=== PATIENT | female | born 1955 | race Caucasian/White ===

== ENCOUNTER → 2020-02-26 10:29 | Outpatient (CLI) | payer MEDICARE, OTHER, SELFPAY ==
--- NOTE | 2020-02-26 10:55 | EKG12_ITS ---
Test Reason : PRE-OP Blood Pressure : / mmHG Vent. Rate : 059 BPM Atrial Rate : 059 BPM P-R Int : 166 ms QRS Dur : 082 ms QT Int : 410 ms P-R-T Axes : 056 089 048 degrees QTc Int : 405 ms Sinus bradycardia Otherwise normal ECG Confirmed by ROHAN WILSON, CELSO ([id number]), subeditor JOE VALENZUELA ([id number]) on 02/28/2020 3:30:48 PM Referred By: Sima Evans Confirmed By:CELSO MADRIGAL MD
[2020-02-26 10:59] LABS: Absolute Lymphocyte Count 1.03 X10^3/uL (0.83-4.51); Absolute Neutrophil Count 5.2 X10^3/uL (2.0-7.7); Basophil# 0.05 X10^3/uL; Basophil% 0.7 % (0-1); Eosinophil# 0.02 X10^3/uL; Eosinophils% 0.3 % (0-5); Hematocrit 43.1 % (37-47); Hemoglobin 14.5 g/dL (12.0-15.0); Lymphocyte # 1.03 X10^3/ul (4.0); Lymphocyte % 15.1 % (19-41); Mean Corp Hgb Conc 33.6 g/dL (32-36); Mean Corpuscular Hgb 30.7 pg (27.0-32.0); Mean Corpuscular Volume 91.1 fL (81-99); Mean Platelet Vol. 9.3 fl (6.2-12.0); Monocyte% 7.3 % (0-10); NRBC Flagged by Analyzer 0 % (0-5); Neutrophil % 76.5 % (47-70); Platelet Count 284 K/mm3 (150-450); RBC Distribution Width CV 12.1 % (11.6-14.6); RBC Distribution Width SD 39.8 fl (35.1-43.9); Red Blood Count 4.73 M/mm3 (4.2-5.4); White Blood Count 6.8 K/mm3 (4.4-11.0)
[2020-02-26 11:17] LABS: Anion Gap 3 (5-15); BUN 12 mg/dL (7-18); BUN/Creat Ratio 15.3 RATIO (10-20); Calcium,Total 9.2 mg/dL (8.5-10.1); Chloride 101 mmol/L (98-107); Creatinine, Serum 0.79 mg/dL (0.55-1.02); EST Glomerular Filtration Rate 78 mL/min (>60); Est Glom Filt Rate - Afr Amer 94 mL/min (>60); Glucose 98 mg/dL (74-106); Potassium 4.1 mmol/L (3.5-5.1); Sodium Level 135 mmol/L (136-145)
== END ==
PROVIDERS: Referring Provider Registered Nurse; Visit Provider Registered Nurse
DX: Z01.818 Encounter for other preprocedural examination (principal); Z01.810 Encounter for preprocedural cardiovascular examination
CPT/HCPCS: 36415; 80048; 85025; 93005

== ENCOUNTER → 2020-02-28 10:29 | Outpatient (CLI) | payer MEDICARE, OTHER, SELFPAY | PROVIDERS: Referring Provider Registered Nurse; Visit Provider Registered Nurse | DX: Z11.59 Encounter for screening for other viral diseases (principal) | CPT/HCPCS: 87635; 94799; U0003 ==

== ENCOUNTER → 2020-06-09 14:31 | Outpatient (CLI) | payer MEDICARE, OTHER, SELFPAY ==
[2020-05-15 12:59] VITALS: BMI 27.3
--- NOTE | 2020-06-09 14:49 | CT_ITS ---
CT of the left lower extremity without contrast INDICATION: Preop knee arthroplasty, November protocol. TECHNIQUE: Multiple thin section axial CT images of the left hip, left knee, left ankle were obtained and filmed in bone windows. Furthermore, multiple sagittal and coronal reconstructions were performed. Dose limiting techniques were utilized. FINDINGS: No abnormal soft tissue mass, lymphadenopathy, fluid collection. Moderate-sized joint effusion of the knee joint. Examination the hip joint is normal. Moderate arthrosis of the knee joint with osteochondral lesions of the lateral femoral condyle and lateral tibial plateau. Examination the ankle joint is normal. No acute fracture or dislocation. No lytic or blastic lesions. IMPRESSION: Moderate knee arthrosis with joint effusion. Electronically Signed: Maximino Eubanks MD at 15:38 EST Tel , Service support , CT/Extremity Lower without Contra
== END ==
PROVIDERS: PCP Internal Medicine; Referring Provider Specialist; Visit Provider Specialist
DX: E66.3 Overweight (principal)
CPT/HCPCS: 73700

== ENCOUNTER → 2020-06-12 10:24 | Outpatient (CLI) | payer MEDICARE, OTHER, SELFPAY ==
[2020-05-15 12:59] VITALS: BMI 27.3
[2020-06-12 11:13] LABS: Probe Check PASS; Specimen Processing Control PASS
== END ==
PROVIDERS: PCP Internal Medicine; Visit Provider Internal Medicine
DX: U07.1 COVID-19 (principal)
CPT/HCPCS: 87635; C9803; U0002

== ENCOUNTER 2020-06-25 05:56 | Day surgery (SDC) | payer MEDICARE, OTHER, SELFPAY ==
[2020-05-15 12:59] VITALS: BMI 27.3
[2020-06-09 15:01] LABS: Absolute Lymphocyte Count 0.49 X10^3/uL (0.83-4.51); Absolute Neutrophil Count 6.9 X10^3/uL (2.0-7.7); Basophil# 0.04 X10^3/uL; Basophil% 0.5 % (0-1); Eosinophil# 0.02 X10^3/uL; Eosinophils% 0.2 % (0-5); Hematocrit 42.1 % (37-47); Hemoglobin 13.6 g/dL (12.0-15.0); Lymphocyte # 0.49 X10^3/ul (4.0); Mean Corp Hgb Conc 32.3 g/dL (32-36); Mean Corpuscular Hgb 29.3 pg (27.0-32.0); Mean Corpuscular Volume 90.7 fL (81-99); Mean Platelet Vol. 9.3 fl (6.2-12.0); Monocyte% 8.5 % (0-10); NRBC Flagged by Analyzer 0 % (0-5); Neutrophil # 6.94 X10^3/uL (2.7-7.7); Neutrophil % 84.7 % (47-70); POSITIVE DIFFERENTIAL YES; Platelet Count 262 K/mm3 (150-450); RBC Distribution Width CV 12.4 % (11.6-14.6); RBC Distribution Width SD 40.9 fl (35.1-43.9); Red Blood Count 4.64 M/mm3 (4.2-5.4); White Blood Count 8.2 K/mm3 (4.4-11.0)
[2020-06-09 15:04] LABS: Differential Indicated SCAN CRITERIA MET
--- NOTE | 2020-06-09 15:09 | HP.PCM_ITS ---
History and Physical History and Physical Patient Name: Karen Hooker : 1955 From: ATILIO CANAS NP DATE OF SURGERY: 06/25/2020 SCHEDULED PROCEDURE: Left total knee arthroplasty HISTORY OF PRESENT ILLNESS: Preoperative history and physical exam was performed on June 09, 2020. This is a 64-year-old female whose been having ongoing left knee pain for several years that has significantly increased over the last year. The patient rates her pain is 3 on a scale of 10 on average and 8 on a scale of 10 with activity. The patient describes the pain as intermittent, aching and sore. The pain is made worse with stairs, sitting for prolonged periods of time, standing and walking. The pain is located over the lateral joint line. She denies numbness and tingling. The pain does wake her at night. The patient reports inability to perform activities of daily living without pain and leisure activities such as golfing and walking. Previous conservative measures attempted consist of rest, ice, heat and elevation with no relief. The patient has participated in formal physical therapy and home exercises with no relief. The patient underwent a left knee arthroscopy in February [address] Jc Cleaning. She states she did experience some relief initially but the pain has increased. She has also tried a knee brace. The patient denies any pertinent medical history. Surgical clearance will be obtained from her primary care provider Dr. Gerardo. She denies chest pain, fevers, chills, shortness breath, difficulty breathing or recent infections. After failing conservative measures and discussing treatment options with Dr. Ralph Meraz the patient does wish to proceed with a left total knee arthroplasty. REVIEW OF SYSTEMS: ROS: Const: Denies change in appetite, fever and weight change. CV: Denies chest pain, heart murmur and irregular heartbeat. Resp: Denies cough, pneumonia, shortness of breath, tuberculosis and wheezing. GI: Denies constipation, diarrhea, heartburn, nausea, rectal itching, bloody stools and vomiting. : Denies incontinence. Musculo: Denies leg swelling, pain, trouble walking and weakness. Skin: Denies Raynaud's, history of shingles and tattoo. Neuro: Denies ambulatory dysfunction, dizziness, numbness/tingling and tremor. Psych: Reports anxiety and stress, but denies insomnia. Grzegorz/Lymph: Denies anemia, bleeding/bruising tendency and past transfusion. Reviewed, no changes. PAST MEDICAL HISTORY: Advance Care Plan: Other Directive, LIVING WILL PMH: Medical Problems: No Current Problems Accidents: Fracture - RT FOREARM Surgical Hx: Tubal Ligation - (1982) @[facility] Tonsillectomy - (1961) Knee Arthroscopy LT - (03/06/2020) MSK @ [facility] Anesthesia Complications: None Assistive Devices: None Reviewed, no changes. 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 Personal Habits: Cigarette Use: Never Smoked Cigarettes.Smokeless Tobacco: Never Used Smokeless Tobacco.E-Cigarette Use: Never used.Alcohol: Weekly use.Drug Use: Denies Use.Enjoy Exercising: Never Exercises. Reviewed and updated. VITALS: Ht: 69 Wt: 181lb Wt k.102 BMI: 26.7 BP: 128/78 Pulse: 81 Resp: 16 T: 97.5 T: 36.4C Pain Level: 5 ALLERGIES: No Known Drug Allergy No Known Substance Allergies MEDICATIONS: Oxycodone HCL 5 mg 1-2 tab by mouth every 4 hours, Meloxicam 7.5 mg 1 by mouth twice a day, Promethazine HCL 12.5 mg 1-2 tablets by mouth every 6 hours, Famotidine 20 mg 1 by mouth every day, Transderm Scop (1.5 MG) 1 MG/3Days 1 patch behind ear every 3 days, Reliv Now Supplement 2 t daily, Vitamin C 250 mg 1po qday, Vitamin D 1 po qd PRE-OP EXAM: General appearance:NORMAL Other: Eyes: Conjunctivae and lids: NORMAL Pupils: ERR Ears, Nose, Mouth, and Throat: NORMAL Other: Inspection of lips, teeth and gums: NORMAL Other: Respiratory: Assessment of respiratory effort: NORMAL Other: Auscultation of lungs: clear to auscultation no wheezes, rhonchi or rales. Cardiovascular: Auscultation of heart: regular rate and rhythm, no murmurs, gallops or rubs. Gastrointestinal: Exam of abdomen: soft, nontender, nondistended bowel sounds present. Neurological: see below Psychiatric: Orientation to time, place and person: NORMAL Other: Mood and affect: NORMAL Other: PHYSICAL EXAMINATION: The patient ambulates with a mild antalgic gait. Varus alignment. Well healed arthroscopic portal incisions. Mild tenderness with palpation along the medial joint line. Moderate tenderness to palpation along the lateral joint line. Firm endpoint with varus and valgus stress testing. Range of motion: Flexion to 120. Pain with deep knee flexion. Sensation intact to saphenous, sural, deep and superficial peroneal and tibial nerve distributions. IMAGING STUDIES: 4 views of left knee including sunrise and lateral and bilateral weight-bearing AP and tunnel views obtained on May 26, 2020 reviewed reveals varus alignment and lateral joint space narrowing, subchondral sclerosis and osteophyte formation consistent with severe tricompartmental stage IV osteoa rthritis with bony erosion of the lateral compartment. IMPRESSION: 1. Posttraumatic osteoarthritis, left knee 2. Varus deformity, left knee PLAN: Dr. Ralph Meraz did discuss and review with the patient all treatment options including surgical versus nonsurgical. The patient does wish to proceed with the above-stated procedure. Potential risk, benefits and complications of the procedure were discussed in detail including but not limited to , infection, nerve and blood vessel damage, persistent pain, numbness, tingling, paresthesia, blood clot, pulmonary embolism and requirement for possible further surgery. The patient expressed full understanding and has no further questions for the doctor. The patient does agree to proceed with the above-stated procedure and has signed the surgery consent form. The patient was given prescriptions for the following medications at her preoperative visit: Famotidine, meloxicam, oxycodone, promethazine, and a scopolamine patch. 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 The patient was instructed to bring a walker with her to the hospital the day of her surgery. Discussed with the patient the risks associated with the COVID-19 virus including the risk of exposure while at the hospital. The patient was reassured local hospitals have low infection rates and taken all necessary precautions to limit patient exposure to COVID-19. Limiting the patient's time in the hospital may decrease their exposure to COVID-19. The patient was notified that we will need to comply with any screening or testing the hospital wishes to perform and that surgery may be delayed for any positive test results. This dictation was created using voice recognition software. Phonetic and/or grammatical errors may exist. ___ I have re-examined the patient. There are no clinical changes since date of exam. ___ See progress notes for changes. ___ Dictated on admission Date: Time: Signature:
[2020-06-09 15:35] LABS: Anion Gap 5 (5-15); BUN 18 mg/dL (7-18); BUN/Creat Ratio 12.9 RATIO (10-20); Calcium,Total 9.6 mg/dL (8.5-10.1); Chloride 101 mmol/L (98-107); EST Glomerular Filtration Rate 40 mL/min (>60); Est Glom Filt Rate - Afr Amer 49 mL/min (>60); Glucose 102 mg/dL (74-106); Potassium 4.4 mmol/L (3.5-5.1); Sodium Level 136 mmol/L (136-145)
[2020-06-09 16:31] LABS: Platelet Estimate ADEQUATE (ADEQ); Red Cell Morphology NORM C+C NORMAL (NORM C&C)
[2020-06-21 10:32] LABS: Absolute Lymphocyte Count 1.42 X10^3/uL (0.83-4.51); Absolute Neutrophil Count 3.5 X10^3/uL (2.0-7.7); Basophil# 0.04 X10^3/uL; Basophil% 0.7 % (0-1); Eosinophil# 0.04 X10^3/uL; Eosinophils% 0.7 % (0-5); Hematocrit 41.1 % (37-47); Hemoglobin 13.9 g/dL (12.0-15.0); Lymphocyte # 1.42 X10^3/ul (4.0); Lymphocyte % 25.9 % (19-41); Mean Corp Hgb Conc 33.8 g/dL (32-36); Mean Corpuscular Volume 88.6 fL (81-99); Mean Platelet Vol. 9.5 fl (6.2-12.0); Monocyte# 0.48 X10^3/uL; Monocyte% 8.8 % (0-10); NRBC Flagged by Analyzer 0 % (0-5); Neutrophil # 3.48 X10^3/uL (2.7-7.7); Neutrophil % 63.5 % (47-70); Platelet Count 347 K/mm3 (150-450); RBC Distribution Width CV 11.9 % (11.6-14.6); Red Blood Count 4.64 M/mm3 (4.2-5.4); White Blood Count 5.5 K/mm3 (4.4-11.0)
[2020-06-21 10:42] LABS: Anion Gap 5 (5-15); BUN 9 mg/dL (7-18); BUN/Creat Ratio 11.4 RATIO (10-20); Calcium,Total 9.2 mg/dL (8.5-10.1); Chloride 102 mmol/L (98-107); Creatinine, Serum 0.79 mg/dL (0.55-1.02); EST Glomerular Filtration Rate 78 mL/min (>60); Est Glom Filt Rate - Afr Amer 94 mL/min (>60); Glucose 101 mg/dL (74-106); Sodium Level 135 mmol/L (136-145)
[2020-06-25] VITALS (10 sets, daily range): BP systolic 89–125; BP diastolic 46–64; PULSE 70–94; RESP 16–18; TEMP 36.7–37.3; O2SAT 96–100; BMI 26.0
[2020-06-25] MEDS: Acetaminophen 500 MG Tablet 1000 MG PO (06:32)
[2020-06-25] MEDS: Gabapentin 600 MG Tablet PO (06:32)
[2020-06-25] MEDS: Lactated Ringers 1,000 ML 999 ML IV ×2 (06:43→10:04)
[2020-06-25 07:15] LABS: Bedside Glucose 105 mg/dL (70-110)
--- NOTE | 2020-06-25 07:16 | RAD_ITS ---
STUDY: X-RAY - LEFT KNEE REASON FOR EXAM: Female, 64 years old. TKA. TECHNIQUE: 2 view(s) of the knee. COMPARISON: None. FINDINGS: Normal visualized distal femur. Normal visualized proximal tibia and fibula. Normal proximal tibiofibular articulation. The patient is status post total knee replacement. There is good alignment. Postoperative soft tissue changes. RAD/Knee 1 or 2 Views IMPRESSION: Status post total knee replacement. There is good alignment. Postoperative soft tissue changes. Electronically Signed: Bang Mayfield, at 13:05 EST , Service support ,
[2020-06-25] MEDS: Cefazolin 2 GM in 0.9% Normal Saline 100 ML IV (07:42)
[2020-06-25] MEDS: dexAMETHasone 10 MG/ML Vial IV (08:15)
[2020-06-25] MEDS: Lactated Ringers 1,000 ML 75 ML IV (08:15)
--- NOTE | 2020-06-25 09:05 | OP.PCM_ITS ---
Report of Operation Date of Procedure: 06/25/20 Pre-Operative Diagnosis: Left knee primary osteoarthritis Post-Operative Diagnosis: Left knee primary osteoarthritis Surgery/Procedure Performed:: Minimally invasive left robotic assisted total knee replacement Description of Surgical Findings:: Stable knee with good patella tracking silver chaser: Nicky Anne Type of Anesthesia:: Spinal Anesthesiologist: Christos Osuna Special Medications: 2 g Ancef, 1 g TXA at incision, 1 g TXA closure, 10 mg Decadron, joint cocktail (5 mg Duramorph, 30 mL of 0.5% Ropivicaine, 1000 units of epinephrine, 30 mg of Toradol) Specimen's removed: Bony cuts Estimated Blood Loss (mL): 25 Fluids Replaced: 1500 mL crystalloid Description of Procedure: Implants used: 1. Princeton size 5 triathlon cruciate retaining distal femoral press-fit component 2. [place] size 5 press-fit tritanium tibial baseplate 3. Hailee X3 9 mm CS polyethylene 4. Hailee X3 35 mm asymmetric patella Brief history operative indications: 64-year-old F with history of left knee osteoarthritis with radiographic findings with loss of joint space, osteophyte formation and subchondral sclerosis. Failed conservative measures as mentioned in the H&P. Discussion of total knee arthroplasty as well as risk and benefits were discussed the patient including but not limited to blood loss, DVTs, PEs, neurovascular damage, general risk of anesthesia including loss of life, and stiffness or instability were discussed with patient. Patient demonstrated understanding and was able to sign informed consent. Procedure: On the date of procedure patient's left lower extremity was marked in the preoperative area. The patient was then taken back to the operating room where the patient was placed on the table in the supine position. All bony prominences were identified a well-padded. Anesthesia assumed control of the C-spine and airway and remained controlled throughout the remainder of the procedure. A tourniquet was placed on the left upper thigh and the leg was prepped in a sterile fashion. The surgeon then scrubbed at this time .Upon reentering the room left lower extremity was draped in a standard orthopedic fashion. A timeout was then called and everyone agreed upon the side, the site, the procedure to be performed, patient's identity and antibiotics given. Esmarch bandage was used to exsanguinate the extremity and the tourniquet was placed up to 250 mmHg with the knee in flexion. A midline skin incision was made and sharp dissection was taken down through skin subcutaneous tissue and fat. The standard medial parapatellar incision was made and the patella was subluxed laterally. An Appropriate deep MCL release was done and the fat pad was resected. Our attention was then directed to the patella. The patella was everted and a flat resection was made. The knee was then flexed up in 2 femoral pins were placed inside the incision and 2 tibial pins were placed outside the incision in the medial tibia bicortically. Once this was completed the 2 checkpoints in the femur and tibia were placed. Knee was then flexed up and the bony landmarks were registered. Once this was completed knee was taken through range of motion and manually stressed allowing us to a plan for an appropriate tibial cut. The robotic arm was brought into the field sterilely and checkpoint and saw were registered. Based on the patient's deformity the tibial cut was made in 1 degree of varus. At this time the tensioner was then placed in the joint and ligament tension was checked at 90 degrees and full extension. Based on the patient's ligamentous tension appropriate adjustments were made to the operative plan and ligament releases were done. Once we were happy with our operative plan with balanced flexion and extension gaps our attention was directed to the femur. The robot was brought into the field sterilely and registered. Posterior condylar cuts, anterior chamfer cuts and anterior cuts were appropriately made for a size 5 femur. When these were completed the saws were switched out in the distal femoral and posterior chamfer cuts were made. Protecting the soft tissue throughout this time. A size 5 tibial base plate was selected. the knee was flexed to 90 degrees and the soft tissues and posterior osteophytes were removed from the joint. 40 cc of the periarticular injection was injected into the posterior medial corner of the joint. The appropriate trials were then placed on the femur and tibia. A trial polyethylene was trialed to ensure proper balancing and stability of the knee. The appropriate tibial internal rotation was then marked with a bovie. Our attention was then directed to the patella. The lug holes were drilled and the patella trial was placed. Patellar tracking was checked and deemed appropriate. Once we were happy lug holes were drilled for the femur and trial components were removed. the tibia was subluxed and pinned into place and the keel was punched and drilled appropriately. Final components were verified and opened, and cement was mixed in a vacuum. Creator Up Simplex cement was used. The wound was copiously irrigated with normal saline. When the cement was ready the components were impacted into place starting with the tibia, femur and finally cementing the patella. The trial poly component was placed and the knee was placed in full extension. All excess cement was removed in the process. Once the cement had cured the tracking, alignment and balance were verified and a size 9 mm CS polyethylene component was placed. Once the final components were placed an Irrisept lavage was performed and the wound was copiously irrigated with normal saline solution and the periarticular injection was given. The wound was closed in a layer verduzco fashion using #1 vicryl interrupted sutures for the arthrotomy, 2-0 interrupted Vicryl suture for the subcuticular layer and john for final skin closure. A sterile compressive dressing was then placed. The patient was then awakened from anesthesia, transferred to the rroaring branch and transferred to the PACU for recovery. Post op plan DVT ppx: ASA 81mg BID, thigh high compression stockings Follow up: in office in 2 weeks for wound check PT: to start POD #0 at hospital, outpatient PT should be arranged. - Complications No intraoperative complications - Admit VTE Documentation VTE Present on Admission: No VTE Mechan Device Prophylaxis: SCD's, Thigh High LENORA Hose VTE Pharm Prophylaxis ordered?: Yes
[2020-06-25] MEDS: Cefazolin 1 GM/50 ML BAG IV (13:39)
== END 2020-06-25 14:13 | disposition home or self-care (01) ==
LOC: SDC 05:57 → AC 05:58
PROVIDERS: Anesthesiology; PCP Internal Medicine; Referring Provider Specialist; Visit Provider Specialist
PROC: 0SRD0JZ Replacement of Left Knee Joint with Synthetic Substitute, Open Approach (ICD-10-PCS; CPT 27447; principal; 2020-06-25 07:30)
DX: M17.32 Unilateral post-traumatic osteoarthritis, left knee (principal); M21.162 Varus deformity, not elsewhere classified, left knee; Z20.828 Contact with and (suspected) exposure to other viral communicable diseases
CPT/HCPCS: 01402; 27447; S2900; 36415; 73560; 80048; 82040; 82962; 83735; 85025; 87081; 97162; C1776; J7120

== ENCOUNTER → 2021-01-12 11:41 | Outpatient (CLI) | payer MEDICARE, OTHER, SELFPAY ==
[2020-06-25 06:53] VITALS: BMI 26.0
[2021-01-12 12:54] LABS: Absolute Lymphocyte Count 0.99 X10^3/uL (0.83-4.51); Absolute Neutrophil Count 4.6 X10^3/uL (2.0-7.7); Basophil# 0.04 X10^3/uL; Basophil% 0.6 % (0-1); Eosinophil# 0.02 X10^3/uL; Eosinophils% 0.3 % (0-5); Hemoglobin 13.8 g/dL (12.0-15.0); Lymphocyte # 0.99 X10^3/ul (0.83-4.51); Lymphocyte % 15.9 % (19-41); Mean Corp Hgb Conc 32.9 g/dL (32-36); Mean Corpuscular Hgb 30.2 pg (27.0-32.0); Mean Corpuscular Volume 91.9 fL (81-99); Mean Platelet Vol. 9.7 fl (6.2-12.0); Monocyte# 0.59 X10^3/uL; Monocyte% 9.5 % (0-10); NRBC Flagged by Analyzer 0 % (0-5); Neutrophil # 4.56 X10^3/uL (2.7-7.7); Neutrophil % 73.2 % (47-70); Platelet Count 308 K/mm3 (150-450); RBC Distribution Width CV 12.3 % (11.6-14.6); RBC Distribution Width SD 41.3 fl (35.1-43.9); Red Blood Count 4.57 M/mm3 (4.2-5.4); White Blood Count 6.2 K/mm3 (4.4-11.0)
[2021-01-12 13:15] LABS: Erythrocyte Sedimentation Rate 5 mm/hr (0-30)
[2021-01-12 13:21] LABS: CRP < 2.90 mg/L (0.0-3.0)
== END ==
PROVIDERS: PCP Internal Medicine; Referring Provider Specialist; Visit Provider Specialist
DX: Z96.652 Presence of left artificial knee joint (principal)
CPT/HCPCS: 36415; 85025; 85652; 86140

== ENCOUNTER 2021-07-30 11:14 | Outpatient (CLI) | payer MEDICARE, OTHER, SELFPAY ==
[2021-07-30 12:07] LABS: Absolute Lymphocyte Count 1.02 X10^3/uL (0.83-4.51); Absolute Neutrophil Count 5.9 X10^3/uL (2.0-7.7); Basophil# 0.04 X10^3/uL; Basophil% 0.5 % (0-1); Eosinophil# 0.04 X10^3/uL; Eosinophils% 0.5 % (0-5); Hematocrit 41.6 % (37-47); Hemoglobin 14.1 g/dL (12.0-15.0); Lymphocyte # 1.02 X10^3/ul (0.83-4.51); Lymphocyte % 13.4 % (19-41); Mean Corp Hgb Conc 33.9 g/dL (32-36); Mean Corpuscular Hgb 30.5 pg (27.0-32.0); Mean Platelet Vol. 9.4 fl (6.2-12.0); Monocyte# 0.54 X10^3/uL; Monocyte% 7.1 % (0-10); NRBC Flagged by Analyzer 0 % (0-5); Neutrophil % 77.8 % (47-70); Platelet Count 285 K/mm3 (150-450); RBC Distribution Width CV 12.2 % (11.6-14.6); RBC Distribution Width SD 39.8 fl (35.1-43.9); Red Blood Count 4.62 M/mm3 (4.2-5.4); White Blood Count 7.6 K/mm3 (4.4-11.0)
[2021-07-30 12:28] LABS: Erythrocyte Sedimentation Rate 3 mm/hr (0-30)
[2021-07-30 12:40] LABS: CRP < 2.90 mg/L (0.0-3.0)
== END 2021-07-30 23:59 | disposition short-term general hospital (02) ==
PROVIDERS: PCP Internal Medicine; Visit Provider Specialist
DX: Z96.652 Presence of left artificial knee joint (principal)
CPT/HCPCS: 36415; 85025; 85652; 86140

== ENCOUNTER → 2022-01-01 | Outpatient (CLI) | payer MEDICARE, OTHER, SELFPAY ==
--- NOTE | 2022-01-01 10:07 | RAD_ITS ---
EXAM: XR LEFT ANKLE, 2 VIEWS CLINICAL INDICATION: Injury, tender lauro TECHNIQUE: Frontal and lateral views of the left ankle. This report was created using [employer] report generation technology. COMPARISON: None. FINDINGS: BONES/JOINTS: There is a calcaneal spur. No acute fracture. No subluxation. Normal alignment. Preservation of the joint space. No sclerotic or destructive changes observed. SOFT TISSUES: Unremarkable. No soft tissue swelling or gas. No radiopaque foreign body. RAD/Ankle 2 Views IMPRESSION: There is a calcaneal spur. Electronically Signed: Kg Mosqueda MD at 15:27 EDT ,
--- NOTE | 2022-01-01 10:07 | RAD_ITS ---
EXAM: XR LEFT FOOT COMPLETE, 3 OR MORE VIEWS CLINICAL INDICATION: Injury, Left middle toe TECHNIQUE: Frontal, lateral and oblique views of the left foot. This report was created using [employer] report generation technology. COMPARISON: None. FINDINGS: BONES/JOINTS: There is a calcaneal spur. No acute fracture. No subluxation. Normal alignment. Preservation of the joint space. No sclerotic or destructive changes observed. SOFT TISSUES: Unremarkable. No soft tissue swelling or gas. No radiopaque foreign body. RAD/Foot min 3 Views IMPRESSION: There is a calcaneal spur. Electronically Signed: Kg Mosqueda MD at 15:27 EDT ,
== END | disposition home or self-care (01) ==
LOC: RAD 10:04
PROVIDERS: PCP Internal Medicine; Referring Provider Physician Assistant; Visit Provider Physician Assistant
DX: S99.922A Unspecified injury of left foot, initial encounter (principal); M79.675 Pain in left toe(s); S99.912A Unspecified injury of left ankle, initial encounter; M25.579 Pain in unspecified ankle and joints of unspecified foot
CPT/HCPCS: 73600; 73630

== ENCOUNTER → 2022-03-09 | Outpatient (CLI) | payer MEDICARE, OTHER, SELFPAY ==
--- NOTE | 2022-03-09 10:41 | BI_ITS ---
MAMMOGRAPHY - BILATERAL SCREENING REASON FOR EXAM: Female, 66 years old. Routine annual screening examination. PERTINENT HISTORY: Non-contributory. Remote right stereotactic breast biopsy. TECHNIQUE: Digital bilateral breast jass (3D mammographic acquisition) in the CC and MLO projections. 2-D mediolateral oblique (MLO) and craniocaudad (CC) views of both breasts were obtained. CAD: Full Field Digital Mammography with Computer Added Detection was performed. COMPARISON: No comparison mammograms available at this time. If any prior films become available, an addendum to this report can be generated. FINDINGS: Breast Composition: There are scattered areas of fibroglandular density. There are no dominant masses or suspicious calcifications. No other significant abnormalities are identified. BI/SCRN MAMM (CAD)W/JASS BILAT IMPRESSION: Negative screening mammogram. Yearly followup mammogram recommended. (A) ASSESSMENT CATEGORY: BIRADS Category 1: Negative. A letter regarding these results will be sent to the patient by the facility within 30 days. Approximately 10% of breast cancers are not detected by mammography. A normal mammogram should not delay biopsy of a clinically suspicious abnormality. [id number] Electronically Signed: Bang Mayfield MD at 12:03 EDT ,
[2022-03-09 11:59] LABS: Absolute Lymphocyte Count 1.21 X10^3/uL (0.83-4.51); Absolute Neutrophil Count 4.2 X10^3/uL (2.0-7.7); Basophil# 0.04 X10^3/uL; Basophil% 0.7 % (0-1); Eosinophil# 0.03 X10^3/uL; Eosinophils% 0.5 % (0-5); Hematocrit 41.1 % (37-47); Hemoglobin 13.8 g/dL (12.0-15.0); Lymphocyte # 1.21 X10^3/ul (0.83-4.51); Lymphocyte % 19.9 % (19-41); Mean Corp Hgb Conc 33.6 g/dL (32-36); Mean Corpuscular Hgb 30.3 pg (27.0-32.0); Mean Corpuscular Volume 90.1 fL (81-99); Mean Platelet Vol. 9.3 fl (6.2-12.0); Monocyte# 0.54 X10^3/uL; Monocyte% 8.9 % (0-10); NRBC Flagged by Analyzer 0 % (0-5); Neutrophil # 4.24 X10^3/uL (2.7-7.7); Neutrophil % 69.7 % (47-70); Platelet Count 269 K/mm3 (150-450); RBC Distribution Width SD 39.6 fl (35.1-43.9); Red Blood Count 4.56 M/mm3 (4.2-5.4); White Blood Count 6.1 K/mm3 (4.4-11.0)
[2022-03-09 12:31] LABS: Vitamin D,25 Hydroxy 40.1 ng/mL
[2022-03-09 12:40] LABS: ALB/GLOB Ratio 1.2 RATIO (0.9-2.4); AST(SGOT) 19 U/L (15-37); Alanine Aminotransfer ALT/SGPT 24 U/L (13-56); Alkaline Phosphatase 56 U/L (45-117); Anion Gap 6 (5-15); BUN 10 mg/dL (7-18); Chloride 102 mmol/L (98-107); Cholesterol 247 mg/dL (200); Creatinine, Serum 0.67 mg/dL (0.55-1.02); EST Glomerular Filtration Rate 94 mL/min (>60); Est Glom Filt Rate - Afr Amer 113 mL/min (>60); Globulin 3.2 g/dL (2.2-4.2); Glucose 101 mg/dL (74-106); High Density Lipoprotein 74 mg/dL; Potassium 4.1 mmol/L (3.5-5.1); Protein, Total 7.2 g/dL (6.4-8.2); Sodium Level 137 mmol/L (136-145); Thyroid Stim Hormone (TSH) 1.64 uIU/mL (0.358-3.74); Triglycerides 61 mg/dL; Very Low Density Lipoprotein 12 mg/dL (5-40)
== END | disposition home or self-care (01) ==
PROVIDERS: PCP Internal Medicine; Visit Provider Internal Medicine
DX: Z12.31 Encounter for screening mammogram for malignant neoplasm of breast (principal); E78.5 Hyperlipidemia, unspecified; E55.9 Vitamin D deficiency, unspecified
CPT/HCPCS: 36415; 77063; 77067; 80053; 80061; 82306; 84443; 85025

== ENCOUNTER → 2023-12-21 | Outpatient (CLI) | payer MEDICARE, OTHER, SELFPAY ==
[2023-12-21 11:55] LABS: Absolute Lymphocyte Count 1.28 X10^3/uL (0.83-4.51); Absolute Neutrophil Count 5.3 X10^3/uL (2.0-7.7); Basophil# 0.05 X10^3/uL; Basophil% 0.7 % (0-1); Eosinophil# 0.02 X10^3/uL; Eosinophils% 0.3 % (0-5); Hematocrit 41.9 % (37-47); Hemoglobin 13.9 g/dL (12.0-15.0); Lymphocyte # 1.28 X10^3/ul (0.83-4.51); Mean Corp Hgb Conc 33.2 g/dL (32-36); Mean Corpuscular Hgb 30.3 pg (27.0-32.0); Mean Corpuscular Volume 91.3 fL (81-99); Mean Platelet Vol. 9.6 fl (6.2-12.0); Monocyte# 0.45 X10^3/uL; Monocyte% 6.3 % (0-10); NRBC Flagged by Analyzer 0 % (0-5); Neutrophil # 5.29 X10^3/uL (2.7-7.7); Neutrophil % 74.4 % (47-70); Platelet Count 282 K/mm3 (150-450); RBC Distribution Width CV 12.2 % (11.6-14.6); Red Blood Count 4.59 M/mm3 (4.2-5.4); White Blood Count 7.1 K/mm3 (4.4-11.0)
[2023-12-21 12:46] LABS: ALB/GLOB Ratio 1.2 RATIO (0.9-2.4); AST(SGOT) 22 U/L (15-37); Alanine Aminotransfer ALT/SGPT 21 U/L (13-56); Albumin, Serum 4.1 g/dL (3.2-5.0); Alkaline Phosphatase 55 U/L (45-117); Anion Gap 5 (5-15); BUN 10 mg/dL (7-18); Calcium,Total 9.4 mg/dL (8.5-10.1); Chloride 102 mmol/L (98-107); Cholesterol 245 mg/dL (200); Creatinine, Serum 0.67 mg/dL (0.55-1.02); EST Glomerular Filtration Rate 93 mL/min (>60); Est Glom Filt Rate - Afr Amer 113 mL/min (>60); Globulin 3.5 g/dL (2.2-4.2); Glucose 97 mg/dL (74-106); High Density Lipoprotein 83 mg/dL; Protein, Total 7.6 g/dL (6.4-8.2); Sodium Level 135 mmol/L (136-145); Thyroid Stim Hormone (TSH) 1.75 uIU/mL (0.358-3.74); Triglycerides 68 mg/dL; Very Low Density Lipoprotein 14 mg/dL (5-40)
[2023-12-23 19:07] LABS: H.Pylori Breath Test Negative (Negative)
== END | disposition home or self-care (01) ==
PROVIDERS: PCP Internal Medicine; Referring Provider Internal Medicine; Visit Provider Internal Medicine
DX: E78.5 Hyperlipidemia, unspecified (principal); Z13.220 Encounter for screening for lipoid disorders; R00.2 Palpitations; M25.562 Pain in left knee; M17.10 Unilateral primary osteoarthritis, unspecified knee; E55.9 Vitamin D deficiency, unspecified; R11.0 Nausea
CPT/HCPCS: 36415; 80053; 80061; 82306; 83013; 84443; 85025

== ENCOUNTER → 2024-01-10 | Outpatient (CLI) | payer MEDICARE, OTHER, SELFPAY ==
--- NOTE | 2024-01-10 09:21 | US_ITS ---
STUDY: ABDOMINAL ULTRASOUND - RIGHT UPPER QUADRANT REASON FOR VISIT: Female, 68 years old Nausea, bloating TECHNIQUE: Ultrasound evaluation of the right upper quadrant was performed with real-time and static velazquez-scale imaging. TECHNICAL QUALITY: Adequate. COMPARISON: None. FINDINGS: Liver: The liver measures 13.3 cm. There is normal echogenicity of the liver. The bile ducts are within normal limits. There is hepatic color flow. The direction of portal flow is hepatopetal. There is no demonstrated mass lesion. Gallbladder: Normal distended gallbladder. The gallbladder wall measures 1 mm. There is a negative sonographic Self''s sign. There is no pericholecystic fluid. There are no gallstones. Common Bile Duct (C.B.D.): The common bile duct measures 2 mm. Pancreas: Normal size of the head, body and tail of the pancreas. There is normal echogenicity of the pancreas. There is no demonstrated pancreatic mass or cyst. Right Kidney: Normal size of the right kidney. The right kidney measures 10.7 cm x 4.9 cm x 5.2 cm. Normal renal cortex. The right cortex measures 1.2 cm. There is no demonstrated renal mass or cyst. There is no right hydronephrosis. US/Gallbladder IMPRESSION: Normal right upper quadrant ultrasound examination. Electronically Signed: Bang Mayfield MD at 10:40 EDT ,
--- NOTE | 2024-01-10 10:15 | NM_ITS ---
CLINICAL: 68-year-old female with history of abdominal bloating and chronic nausea. RADIONUCLIDE HEPATOBILIARY SCINTIGRAPHY COMPARISON: Abdominal ultrasound report 01/10/2024 FINDINGS: Following the intravenous administration of 5.3 mCi of 99m Tc Mebrofenin, hepatobiliary images reveal: 1. Relatively prompt and homogeneous radiopharmaceutical concentration is noted by a normal sized liver. No parenchymal defects are identified. 2. Gallbladder activity is identified at 15 minutes post radiopharmaceutical administration. 3. Small intestinal tract is not visualized during 60 minutes of pre-CCK sequential imaging. Small bowel activity is identified following the administration of cholecystokinin. 4. Washout of the radiopharmaceutical by the hepatic parenchyma appears qualitatively normal. Cholecystokinin (0.02 ug/kg) was administered intravenously over a 30-minute period. The post CCK gallbladder ejection fraction calculated at 20 minutes following Cholecystokinin administration was noted to be 68.0 % (normal greater than 35%). During 30 minutes of post CCK imaging, there is no scintigraphic evidence of reflux of the radiotracer into the common hepatic duct or refilling of the gallbladder. NM/Hepatobilliary Img w/Pharm Int IMPRESSION: 1. NORMAL 99m Tc Mebrofenin hepatobiliary imaging examination with Cholecystokinin. A. A gallbladder ejection fraction calculated to be greater than 35% following the administration of Cholecystokinin makes the probability of functional hepatobiliary disease (gallbladder and/or sphincter of Oddi dyskinesia) and/or organic hepatobiliary disease (chronic acalculous cholecystitis and/or cystic duct syndrome) to be low. (Clayton Dias al, Journal of Nuclear Medicine 32:1695, 1991). Electronically Signed: Maximino Wright DO at 10:38 EDT ,
== END | disposition home or self-care (01) ==
PROVIDERS: PCP Internal Medicine; Referring Provider Internal Medicine; Visit Provider Internal Medicine
DX: R11.0 Nausea (principal); R14.0 Abdominal distension (gaseous)
CPT/HCPCS: 76705; 78227; A9537; J2805

== ENCOUNTER 2024-02-06 09:55 | Day surgery (SDC) | payer MEDICARE, OTHER, SELFPAY ==
[2024-02-06] VITALS (8 sets, daily range): BP systolic 108–145; BP diastolic 60–75; PULSE 68–86; RESP 16–18; TEMP 36.1–37; O2SAT 96–99; BMI 24.4
[2024-02-06] MEDS: Lactated Ringers 1,000 ML 15 ML IV (10:14)
--- NOTE | 2024-02-06 10:16 | PCM.PRE.AN2 ---
ASA Classification* ASA Classification ASA Classification: 2 Assessment & Plan Anesthesia* Anesthesia Assessment Anesthesia Assessment: Discussed sedation and/or anesthesia options, risks, benefits, and alternatives with patient/parents/legal guardian/POA. Questions invited. The patient/parents/legal guardian/POA seems to understand and agrees to proceed with anesthesia plan. Reviewed the physical assessment, medical history, allergy history and patient home medications list prior to surgery/procedure/anesthetic and documented any changes. Performed airway and anesthesia risk assessments. Anesthesia Type Anesthesia Type: MAC (see written pre anesthesia record for full assessment) Anesthesia Focused Assessment* Temperature: 97 F Pulse Rate: 75 Blood Pressure: 145/75 Respiratory Rate: 16 Pulse Ox: 97 Airway Assessment Mouth opens: >3 cm Mallampati Score: II Focused Labs Anesthesia Preop lab: CBC WBC 7.1 K/mm3 (4.4-11.0) 12/21/23 10:50 RBC 4.59 M/mm3 (4.2-5.4) 12/21/23 10:50 Hgb 13.9 g/dL (12.0-15.0) 12/21/23 10:50 Hct 41.9 % (37-47) 12/21/23 10:50 Plt Count 282 K/mm3 (150-450) 12/21/23 10:50 CHEMISTRY Potassium 4.0 mmol/L (3.5-5.1) 12/21/23 10:50 Sodium 135 mmol/L (136-145) L 12/21/23 10:50 Magnesium 2.0 mg/dL (1.6-2.6) 06/09/20 14:40 BUN 10 mg/dL (7-18) 12/21/23 10:50 Creatinine 0.67 mg/dL (0.55-1.02) 12/21/23 10:50 Glucose 97 mg/dL (74-106) 12/21/23 10:50 POC Glucose 105 mg/dL (70-110) 06/25/20 06:52 TSH 1.75 uIU/mL (0.358-3.74) 12/21/23 10:50 COAG Pre-Assessment Diagnosis/Proposed Procedure Planned Operative Procedure(s): EGD Anesthesia History Anesthesia History - patient access coordinator: Anesthesia History - patient access coordinator Hx Hospitalization No 07/11/24 11:59 Any Problems With Anesthesia No: RASHAD GOES A LONG 02/02/24 11:59 AWAY Cholinesterase deficiency No 02/02/24 11:59 You/Your Family Experience No 02/02/24 11:59 fever (hyperthermia) with Relationship Recent Exposure to Contagious No 02/06/24 10:12 Disease Does patient have nerve No 02/02/24 11:59 stimulator Patient instructed to have device shut off --Does patient have Pacemaker No 02/06/24 10:12 or ICD? When Was Last Pacemaker Check QUESTION #4 FULL TEXT: You/Your Family Experience fever (hyperthermia) with Anesthesia Last Oral Intake Last Oral intake: Last Oral Intake NPO since 22:00 02/06/24 10:12 Meds taken in AM with sips of water? Meds patient instructed to take am of surgery PONV PONV - patient access coordinator: PONV - patient access coordinator Female Yes 02/02/24 11:59 HX of Motion Sickness Yes 02/02/24 11:59 HX of N/V After Surgery No 02/02/24 11:59 Non-Smoker Yes 02/02/24 11:59 Duration of Surgery greater No 02/02/24 11:59 than 60 minutes Number of Risk Factors 3 02/02/24 11:59 PONV Score Moderate Risk 02/02/24 11:59 Height & Weight Height & Weight: Anesthesia: Height & Weight Height 5 ft 9 in 02/06/24 10:12 Weight: 75 kg 02/06/24 10:12 Body Mass Index (BMI) 24.4 02/06/24 10:12 Respiratory Assessment Respiratory Assessment - patient access coordinator: Respiratory Tract Infection Hx - patient access coordinator Hx Respiratory Tract Infection No 02/02/24 11:59 STOP Sleep Apnea STOP Sleep Apnea - patient access coordinator: STOP Sleep Apnea - patient access coordinator Hx Hypertension No 02/02/24 11:59 Hx Sleep Apnea No 02/02/24 11:59 CPAP BIPAP Do you snore loudly (louder No 02/02/24 11:59 than talking or can be heard Do you often feel tired/ No 02/02/24 11:59 fatigued/ sleepy during daytime? Has anyone observed you stop No 02/02/24 11:59 breathing during sleep? STOP Results Negative 07/11/24 11:59 QUESTION #5 FULL TEXT : Do you snore loudly (louder than talking or can be heard through closed doors)? 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 Specify any problems Hx of Preganancy in last 3 No 02/02/24 11:59 Months Nurse Filling Out Transfusion DSCHRIBER 02/02/24 11:59 & Questions: Date: 02/02/24 02/02/24 11:59 Time: 12:00 02/02/24 11:59 Patient unable to answer at this time (ie. confused, unrespo /Reproduction History /Reproductive History - patient access coordinator: /Reproductive Hx- patient access coordinator Hx Now No 02/02/24 11:59 Gestational Age (in weeks): EDC: Hx Hx Para Hx Section SAB No 02/02/24 11:59 Active Medications Active Medications: Current Medications Generic Name Dose Route Start Last Admin Trade Name Freq PRN Reason Stop Dose Admin Lactated Ringer's 1,000 mls @ 15 mls/hr 02/06/24 10:15 IV .Q48H EVELYN PFSH Medical History Anxiety Alcohol use Discoloration of skin Non-smoker History of pain when walking Cardiology follow-up encounter History of irregular heartbeat History of Helicobacter pylori infection history of child Rosacea history of breast lump/cyst history of bone fracture Arthritis Home Medications ?Medication ?Instructions ?Recorded ?Last Taken ?Type Araffect 1 dose PO DAILY supplement 05/15/20 Unknown History Classic 1 dose PO DAILY supplement 05/15/20 Unknown History FibRestore 1 dose PO DAILY supplement 05/15/20 Unknown History Innergize 1 dose PO DAILY supplement 05/15/20 Unknown History Now 1 dose PO DAILY supplement 05/15/20 Unknown History Reliv Nutritional Products 1 dose PO DAILY supplement 05/15/20 Unknown History Soy Essentials 1 dose PO DAILY supplement 05/15/20 Unknown History ascorbic acid (vitamin C) 500 mg 900 mg PO DAILY supplement 06/13/20 Unknown History tablet,extended release cephalexin 250 mg capsule 250 mg PO TID 5 days #15 caps 02/02/24 Unknown Rx cholecalciferol (vitamin D3) 50 50 mcg PO DAILY 02/02/24 Unknown History mcg (2,000 unit) tablet (Vitamin D3) omega 6-vlq-ljl-fish oil 1,200 mg 1 cap PO DAILY 02/02/24 Unknown History (144 mg-216 mg) capsule (Fish Oil) Allergy/AdvReac Type Severity Reaction Status Date / Time No Known Allergies Allergy Verified 02/06/24 10:11 Family History Mother Tuberculosis Other Anesthesia complication Anxiety Arthritis Autoimmune disease Hypertension Osteoporosis Skin cancer Surgical History Hx of total knee arthroplasty S/P cataract extraction Status post LASIK surgery History of biopsy History of colonoscopy H/O tubal ligation History of tonsillectomy Social History Smoking Status: Never smoker alcohol intake: current alcohol intake frequency: a few times a week substance use type: does not use what type of physical activity do you participate in: none Review of Systems (Anesthesia) ROS Narrative System reviewed and no additional complaints, except as documented.
--- NOTE | 2024-02-06 10:40 | HP.PCM_ITS ---
History and Physical Date of Admission: 02/06/24 Intake Vital Signs 12/20/2408:29 02/01/2408:19 Height 5 ft 9 in 5 ft 9 in Weight: 169 lb BMI 24.9 BP 151/80 H Blood Pressure Location Rt brachial Position Sitting Respiration 18 Intake Visit Reasons: ABD PAIN, NAUSEA Chief Complaint: nausea Form Setter Required: No Is patient in pain?: No Allergies No Known Allergies Allergy (Verified 02/01/24 08:20) Medications ?Medication ?Instructions ?Recorded ?Confirmed ?Type Araffect 1 dose PO DAILY supplement 05/15/20 02/01/24 History Classic 1 dose PO DAILY supplement 05/15/20 02/01/24 History FibRestore 1 dose PO DAILY supplement 05/15/20 02/01/24 History Innergize 1 dose PO DAILY supplement 05/15/20 02/01/24 History Now 1 dose PO DAILY supplement 05/15/20 02/01/24 History Reliv Nutritional Products 1 dose PO DAILY supplement 05/15/20 02/01/24 History Soy Essentials 1 dose PO DAILY supplement 05/15/20 02/01/24 History ascorbic acid (vitamin C) 500 mg 900 mg PO DAILY supplement 06/13/20 02/01/24 History tablet,extended release zinc gluconate 30 mg tablet 11 mg PO DAILY supplement 06/13/20 02/01/24 History Have you fallen in the past year?: No PFSH Medical History History of Helicobacter pylori infection history of child Rosacea History of pneumonia Hives History of gallstones history of breast lump/cyst history of bone fracture Arthritis Surgical History S/P cataract extraction Status post LASIK surgery History of biopsy History of colonoscopy History of knee surgery H/O tubal ligation History of tonsillectomy Family History Mother TuberculosisOther Anesthesia complication Anxiety Arthritis Autoimmune disease Hypertension Osteoporosis Skin cancer Social History Smoking Status: Never smoker alcohol intake: current alcohol intake frequency: a few times a week substance use type: does not use what type of physical activity do you participate in: none HPI HPI HPI: Patient is a 68-year-old female here for nausea. She has been having nausea for the last 6 months. She does not have vomiting. She says it does not coincide with eating. She does have a history of H. pylori infection but this was recently checked and was negative. She does not report any abdominal pain. ROS General General: No weight change, appetite, fatigue, colon cancer, breast cancer or weakness HEENT HEENT: Yes eye surgery; No difficulty swallowing, eye injury, swollen glands or hoarseness Endo Endocrine: No thyroid disease, diabetes mellitus, thyroid cancer, Hair loss, heat intolerance or cold intolerance Skin Skin: No rash or changing moles Breast Breast: No left breast lump, right breast lump, nipple discharge, breast pain, abnormal mammogram, abnormal US or breast enlargement Musc Musculoskeletal: Yes arthritis; No back problems, rheumatoid arthritis, gout or joint pain Cardio Cardiovascular: No murmur, pacemaker, heart disease, atrial fibrillation, high blood pressure, heart attack, heart stent, palpitations, shortness of breat with exertion or chest pain Psych Psychiatric: Yes depression and anxiety; No hearing voices Resp Respiratory: No shortness of breath, No sleep apnea, No cough, No COPD, No asthma, No emphysema and No wheezing Gastro Gastrointestinal: No abdominal pain, Yes nausea or vomiting, No diarrhea, No constipation, No blood in stool, No acid reflux, Yes hemorrhoids, No ulcers, No gallbladder problem and No black,tarry stools Grzegorz Hematologic: No blood thinners, No blood disorders, No bleeding, No anemia and No blood clots Neuro Neurologic: No system reviewed and no additional complaints, except as documented, No as per HPI, No abnormal gait, No abnormal hearing, No abnormal movements, No abnormal speech, No behavioral changes, No burning sensations, No confusion, No convulsions, No disequilibrium, No dizziness, No localized weakness, No frequent falls, No headache(s), No lack of coordination, No loss of vision, No memory loss, No numbness, No other visual disturbances, No radicular pain, No restless legs, No sensory deficit, No syncope, No tingling, No tremor(s), No weakness and No other Exam Const General: cooperative Orientation: alert and oriented x3 HENMT Head: normal to inspection Neck Neck: normal visual inspection and full ROM Chest Chest palpation & inspection: normal inspection of the chest Resp Effort & Inspection: normal respiratory effort Auscultation: clear to auscultation bilaterally Cardio Rate: regular rate Rhythm: regular rhythm GI Inspection: non-distended Palpation: soft and nontender Skin General: no rashes or lesions noted Neuro General: patient alert and patient oriented x3 Extrem General: full ROM Psych Appearance: grossly normal Mental Status: mental status grossly normal Assessment and Plan Assessment and Plan (1) Nausea: Status: Acute Plan: The patient has ongoing nausea. She has had ultrasound of the gallbladder which was normal as well as a HIDA of the gallbladder which was normal. Patient was sent here for EGD to evaluate the stomach. I explained endoscopy in detail to the patient. I explained the risks including but not limited to stroke or heart attack with anesthesia, perforation of the GI tract, bleeding, infection. I explained that any of these could necessitate further emergency surgery. The patient understands and all questions were answered sufficiently. The patient wishes to proceed with procedure. Bahman Ariza MD Pager: [facility] [address] [place] [address] [address] [place] [address] Office: I have examined the patient and the H&P has been reviewed. There are no clinical changes since date of exam.
--- NOTE | 2024-02-06 10:56 | PCM.POST.ANE ---
Anesthesia: Postop Eval I Current Vital Signs Temperature: 97.7 F Pulse Rate: 86 Blood Pressure: 116/60 Respiratory Rate: 18 Pulse Ox: 99 Assessment Airway patent: Yes Spontaneous unlabored respirations: Yes Mental status: Awake and Calm nausea: No Vomiting: No Anesthesia Complication: No Fluid Hydration Crystalloid volume administer (ml): 200 Total IV fluid infused: 200 Progress Note Anesthesia document: Postop Eval 1 completed: Yes
--- NOTE | 2024-02-06 11:00 | EGD_PTH ---
PATIENT: GEENA DELGADILLO LOC: EN U#:[id number] AGE/SX: 68/F ROOM: RE02/06/[address]: Dr. Bahman Ariza MD : 1955 BED: DIS: 02/06/2024 SPEC #: [id number] RECD: 02/06/24 13:24 STATUS: NATHAN ARGUETA #: [id number] THERESA: 02/06/24 11:[address]: Bahman Ariza DEPT: SURGICAL PATHOLOGY RECD BY: Genoveva Craig ENTERED: 02/06/24 13:36 SP TYPE: EGD BIOPSY OT DR: Dr. Valeria Gerardo MD Tissues: Gastric mucous membrane Procedures: Surgery Specimen Level IV HEADER OPERATION: EGD, biopsy PRE-OP DIAGNOSIS: Nausea TISSUE SUBMITTED: Antrum biopsy MICROSCOPIC DIAGNOSIS Antrum, biopsy: Mild gastritis. See microscopic description and comment. SAM/ 02/07/2024 COMMENT The results of immunohistochemistry for Helicobacter pylori will be reported separately ([id number]). MICROSCOPIC DESCRIPTION Slides are reviewed. The specimen shows fragments of gastric mucosa with chronic inflammatory cell infiltrates in the lamina propria consisting of lymphocytes and plasma cells, consistent with mild chronic gastritis. GROSS DESCRIPTION Received in fixative is one container labeled with the patient's name and designated Antrum biopsy. The specimen consists of one irregular fragment of light clark soft tissue that measures 0.4 x 0.4 x 0.1 cm. The specimen is totally submitted in one cassette. SAM/ 02/06/2024 TC:3 CPT:15759
--- NOTE | 2024-02-06 11:00 | IMM_PTH ---
PATIENT: GEENA DELGADILLO LOC: EN U#:[id number] AGE/SX: 68/F ROOM: RE02/06/[address]: Dr. Bahman Ariza MD : 1955 BED: DIS: 02/06/2024 SPEC #: [id number] RECD: 02/06/24 13:46 STATUS: NATHAN REMckayla #: [id number] THERESA: 02/06/24 11:[address]: Bahman Ariza DEPT: IMMUNOHISTOCHEMISTRY RECD BY: Luis Felipe Gordon ENTERED: 02/06/24 13:47 SP TYPE: IMMUNO OTHR DR: Dr. Valeria Gerardo MD Tissues: Gastric mucous membrane Procedures: H Pylori (initial) PHYSICIAN & INSTITUTION [place] [id number] SPECIMEN INFORMATION: Tissue Source: Antrum biopsy Clinical Info: Nausea Specimen Number: [id number] CPT code: 13609 METHODOLOGY: Deparaffinized sections of prefer/formalin-fixed tissue or PAP/DQ stained slides are incubated with monoclonal/polyclonal antibodies/oligonucleotide probes. Localization is made via biotin free immunoperoxidase method. Appropriate controls are performed and reacted as expected. Results on target cell population are indicated in the following table: RESULTS: ANTIBODY / CLONE RESULT H Pylori (polyclonal) negative These tests were developed and their performance characteristics determined by [facility]. They may not have been cleared or approved by the U.S. Food and Drug Administration. The FDA has determined that such clearance or approval is not necessary. The above immunohistochemical/dualISH markers are ordered and reviewed by the Pathologist. INTERPRETATION: Antrum, biopsy: Negative for Helicobacter pylori organisms. SAM/ 02/07/2024
--- NOTE | 2024-02-06 11:20 | OP.EGD_ITS ---
Patient Name: Karen Hooker Procedure Date: 02/06/2024 10:46 AM Date of : 1955 Age: 68 Procedure: Upper GI endoscopy Indications: Nausea Providers: Bahman Ariza MD Medicines: Propofol per Anesthesia Patient Profile: This is a 68 year old female. Refer to note in patient chart for documentation of history and physical. Complications: No immediate complications. Estimated blood loss: Minimal. Procedure: Pre-Anesthesia Assessment: - Prior to the procedure, a History and Physical was performed, and patient medications and allergies were reviewed. The patient's tolerance of previous anesthesia was also reviewed. The risks and benefits of the procedure and the sedation options and risks were discussed with the patient. All questions were answered, and informed consent was obtained. Prior Anticoagulants: The patient has taken no anticoagulant or antiplatelet agents. After reviewing the risks and benefits, the patient was deemed in satisfactory condition to undergo the procedure. After obtaining informed consent, the endoscope was passed under direct vision. Throughout the procedure, the patient's blood pressure, pulse, and oxygen saturations were monitored continuously. The Endoscope was introduced through the mouth, and advanced to the fourth part of duodenum. The upper GI endoscopy was accomplished without difficulty. The patient tolerated the procedure well. Scope In: 10:52:51 AM Scope Out: 10:56:27 AM Total Procedure Duration Time 0 hours 3 minutes 36 seconds Findings: The esophagus was normal. The stomach was normal. The examined duodenum was normal. Biopsies were taken with a cold forceps in the gastric antrum for Helicobacter pylori testing. Impression: - Normal esophagus. - Normal stomach. - Normal examined duodenum. - Biopsies were taken with a cold forceps for Helicobacter pylori testing. Recommendation: - Discharge patient to home. - Resume previous diet. - Continue present medications. - Return to primary care physician. Procedure Code(s): --- Professional --- 61339, Esophagogastroduodenoscopy, flexible, transoral; with biopsy, single or multiple Diagnosis Code(s): --- Professional --- R11.0, Nausea CPT copyright 2021 [employer]. All rights reserved. The codes documented in this report are preliminary and upon engraved roller inspector review may be revised to meet current compliance requirements. Bahman Ariza MD 02/06/2024 11:20:38 AM This report has been signed electronically. Number of Addenda: 0 Note Initiated On: 02/06/2024 10:46 AM
--- NOTE | 2024-02-06 11:21 | OP.CCLET_ITS ---
02/06/2024 Valeria Gerardo [facility] [address] [place] [address] Re : Upper GI endoscopy procedure for Karen Hooker Dear Dr. Gerardo This procedure was performed on Tuesday, February 06, 2024. My impressions and recommendations are as follows: Impressions : - Normal esophagus. - Normal stomach. - Normal examined duodenum. - Biopsies were taken with a cold forceps for Helicobacter pylori testing. Recommendations : - Discharge patient to home. - Resume previous diet. - Continue present medications. - Return to primary care physician. My findings are described in the full procedure note, which is enclosed. If I can be of further assistance, please feel free to contact me at Doctor phone number(s): , Work: . Sincerely, Bahman Ariza MD 02/06/2024 11:20:38 AM This report has been signed electronically.
--- NOTE | 2024-02-06 12:47 | POSTOPAN2_ITS ---
Anesthesia Postop Eval I Sum Postop Eval Completion status Anesthesia document: Postop Eval 1 completed: Yes Anesthesia Postop Eval I Summary Anesthesia Postop Eval I Summary: Anesthesia Postop Eval I: Assessment Summary Airway patent Yes 02/06/24 11:00 RESERVOIR ENGINEERING ADVISOR.SCHR Spontaneous unlabored Yes 02/06/24 11:00 RESERVOIR ENGINEERING ADVISOR.SCHR respirations Mental status Awake,Calm 02/06/24 11:00 RESERVOIR ENGINEERING ADVISOR.SCHR nausea No 02/06/24 11:00 RESERVOIR ENGINEERING ADVISOR.SCHR Vomiting No 02/06/24 11:00 RESERVOIR ENGINEERING [facility] Anesthesia Postop Eval I: Fluid Summary Crystalloid volume administer 200 02/06/24 11:00 RESERVOIR ENGINEERING ADVISOR.SCHR (ml) Colloids volume administered ( ml) Blood Product volume administered (ml) Total IV fluid infused 200 02/06/24 11:00 RESERVOIR ENGINEERING ADVISOR.[facility] Anesthesia Postop Eval I: Summary Notes Anesthesia Complication No 02/06/24 11:00 RESERVOIR ENGINEERING ADVISOR.[facility] Anesthesia Complication Comment: Post-operative progress note Anesthesia: Postop Eval II Evaluation Mental status: Awake and Calm Pain Level: 0 nausea: No Vomiting: No Complications Anesthesia Complication: No
--- NOTE | 2024-02-06 12:47 | PCM.POSTANE2 ---
Anesthesia Postop Eval I Sum Postop Eval Completion status Anesthesia document: Postop Eval 1 completed: Yes Anesthesia Postop Eval I Summary Anesthesia Postop Eval I Summary: Anesthesia Postop Eval I: Assessment Summary Airway patent Yes 02/06/24 11:00 BABY ATTENDANT.SCHR Spontaneous unlabored Yes 02/06/24 11:00 BABY ATTENDANT.SCHR respirations Mental status Awake,Calm 02/06/24 11:00 BABY ATTENDANT.SCHR nausea No 02/06/24 11:00 BABY ATTENDANT.SCHR Vomiting No 02/06/24 11:00 [facility] Anesthesia Postop Eval I: Fluid Summary Crystalloid volume administer 200 02/06/24 11:00 BABY ATTENDANT.SCHR (ml) Colloids volume administered ( ml) Blood Product volume administered (ml) Total IV fluid infused 200 02/06/24 11:00 B[facility] ATTENDANT.[facility] Anesthesia Postop Eval I: Summary Notes Anesthesia Complication No 02/06/24 11:00 BABY ATTENDANT.[facility] Anesthesia Complication Comment: Post-operative progress note Anesthesia: Postop Eval II Evaluation Mental status: Awake and Calm Pain Level: 0 nausea: No Vomiting: No Complications Anesthesia Complication: No
== END 2024-02-06 11:43 | disposition home or self-care (01) ==
LOC: EN 09:55 → AC 09:56
PROVIDERS: PCP Internal Medicine; Referring Provider Internal Medicine; Visit Provider Surgery
PROC: 0DJ08ZZ Inspection of Upper Intestinal Tract, Via Natural or Artificial Opening Endoscopic (ICD-10-PCS; CPT 43235; principal; 2024-02-06 10:55)
DX: R11.0 Nausea (principal); Z98.51 Tubal ligation status; K29.70 Gastritis, unspecified, without bleeding
CPT/HCPCS: 43239; 88305; 88342; J7120

== ENCOUNTER → 2024-12-12 | Outpatient (CLI) | payer MEDICARE, OTHER, SELFPAY ==
--- NOTE | 2024-12-12 15:45 | BI_ITS ---
EXAM: SCRN MAMM (CAD)W/JASS BILAT DATE: 12/12/2024 CLINICAL HISTORY: F, Age 69 y/o , BREAST CANCER SCREENING BREAST CANCER RISK ASSESSMENT: Not reported TECHNIQUE: Bilateral screening digital breast tomosynthesis with 2D and 3D images. Computer aided detection. COMPARISON: None available FINDINGS: TISSUE DENSITY: The breast tissue is composed of scattered area of fibroglandular density. Bilateral Breast Mammographic Findings: No suspicious masses, calcifications or other abnormalities are identified. BI/SCRN MAMM (CAD)W/JASS BILAT IMPRESSION: OVERALL FINAL ASSESSMENT: BIRADS 1 NEGATIVE RECOMMENDATION: Routine annual follow-up in 1 Year A letter with findings and recommendations will be mailed to the patient. Reading Location: [id number]
== END | disposition home or self-care (01) ==
LOC: OPBI 15:33
PROVIDERS: PCP Internal Medicine; Referring Provider Internal Medicine; Visit Provider Internal Medicine
DX: Z12.31 Encounter for screening mammogram for malignant neoplasm of breast (principal)
CPT/HCPCS: 77063; 77067

== ENCOUNTER → 2025-03-05 | Outpatient (CLI) | payer MEDICARE, OTHER, SELFPAY ==
--- NOTE | 2025-03-05 11:00 | BD_ITS ---
PROCEDURE: DEXA BONE DENSITY STUDY 03/05/2025 REASON FOR EXAM: OSTEOPOROSIS F, age 69 y/o . Postmenopausal. TECHNIQUE: DEXA BONE DENSITY STUDY COMPARISON: None FINDINGS: BMD and T-SCORES Lumbar spine: 0.956 g/cm2, T-score -0.8 Levels: L1 through L4 Left femoral neck: 0.570 g/cm2, T-score -2.5 Femoral neck comparison data not recommended for monitoring change. Left total hip: 0.719 g/cm2, T-score -1.8 Right femoral neck: 0.547 g/cm2, T-score -2.7 Femoral neck comparison data not recommended for monitoring change. Right total hip: 0.635 g/cm2, T-score -2.5 The World Health Organization has defined the following categories based on bone density: Normal bone density: T-score equal to or greater than -1.0 Osteopenia: T-score between -1.0 and -2.5 Osteoporosis: T-score equal to or less than -2.5 The patient does meet the pharmacological treatment recommendations for prevention of osteoporosis. BD/Dexa Bone Density Study IMPRESSION: OSTEOPOROSIS. Recommend follow-up as clinically warranted. Reading Location: [place] [id number]
== END | disposition home or self-care (01) ==
LOC: OPBD 10:44
PROVIDERS: PCP Internal Medicine; Referring Provider Internal Medicine; Visit Provider Internal Medicine
DX: M81.0 Age-related osteoporosis without current pathological fracture (principal)
CPT/HCPCS: 77080

== ENCOUNTER → 2025-07-24 | Outpatient (CLI) | payer MEDICARE, OTHER, SELFPAY ==
--- NOTE | 2025-07-24 10:13 | RAD_ITS ---
PROCEDURE: CHEST PA AND LATERAL 07/24/2025 REASON FOR EXAM: COUGH, SPUTUM POST INFLUENZA TECHNIQUE: Procedure Code: RADCXR Modality: DX Procedure: CHEST PA AND LATERAL COMPARISON: None FINDINGS: Hardware: None Heart: The heart size is normal. Mediastinum: The mediastinal contour is unremarkable. Lungs: There are chronic-appearing changes of both lungs. Bones: Degenerative changes are identified within the thoracic spine. RAD/Chest PA and Lateral IMPRESSION: Chronic changes, no acute findings Reading Location: [id number]
--- OUTSIDE RECORDS SUMMARY | 2025-07-24 10:33 | XMS RPT_ITS | CCD ---
Author Organization [facility] Care Team Providers Care Validation Manager Name Role Phone Dr. Valeria Gerardo Primary Care Provider Dr. Valeria Gerardo Referring Provider [phone] ALTHEA Castelan Attending Provider Unavailab sadaf Lentz MD, Sonia Canales Primary Care Provider Dr. Valeria Gerardo Primary Care Provider Dr. Valeria Gerardo Referring Provider [phone] Dr. Valeria Gerardo Attending Provider Mary Carmen WILSON, Sonia Canales Primary Care Provider Dr. Valeria Gerardo MD Primary Care Provider Akin WILSON, Dr. Shaw Attending Provider Akin WILSON, Dr. Shaw Referring Provider Valeria Gerardo Referring Unavailable Valeria Gerardo Primary Care Unavailable Valeria Gerardo Attending Unavailable Valeria Gerardo Referring Unavailable Valeria Gerardo Primary Care Unavailable Valeria Gerardo Attending Unavailable Medications Current Medications Medication Drug Class(es) Dates Sig (Normalized) Sig (Original) Araffect (3 sources) Start: 05-15-2020 take 1 dose by mouth once daily Araffect Active 1 DOSE PO DAILY May 15, 2020 12:46pm Start: 05-15-2020 Araffect Activ e 1 NMA PO DAILY 0 May 15, 2020 12:00am supplement Start: 05-15-2020 take 1 dose by mouth once aissatou y Araffect Active 1 DOSE PO DAILY May 15, 2020 12:00am ascorbic acid 500 mg extended release oral tablet (3 sources) Vitamin C Start: 06-13-2020 Ascorbic Acid (Vitamin C) 500 MG tablet extended release Active 900 mg PO DAILY June 13, 2020 1:00am supplement Start: 06-13-2020 take 900 mg by mouth once aissatou y Ascorbic Acid (Vitamin C) Active 900 MG PO DAILY June 13, 2020 2:34pm cholecalciferol 0.05 mg oral tablet (4 sources) Vitamin D Start: 02-02-2024 take 1 tablet by mouth once daily Cholecalciferol (Vitamin D3) (Vitamin D3) 50 mcg (2,000 unit) tablet Active 50 ug PO DAILY February 02, 2024 12:00am Start: 06-13-2020 End: 02-10-2022 take 1 tablet by mouth once daily Cholecalciferol (Vitamin D3) 1,000 UNIT tablet Discontinued 1000 U PO DAILY June 13, 2020 1:00am February 10, 2022 2:34pm supplement Classic (3 sources) Start: 05-15-2020 take 1 dose by mouth once daily Classic Active 1 DOSE PO DAILY May 15, 2020 12:45pm Start: 05-15-2020 Classic Active 1 NMA PO DAILY 0 May 15, 2020 12:00am supplement Start: 05-15-2020 take 1 dose by mouth once aissatou y Classic Active 1 DOSE PO DAILY May 15, 2020 12:00am FibRestore (3 sources) Start: 05-15-2020 take 1 dose by mouth once daily FibRestore Active 1 DOSE PO DAILY May 15, 2020 12:46pm reliv nutritional product Start: 05-15-2020 FibRestore Act kaye 1 NMA PO DAILY 0 May 15, 2020 12:00am supplement reliv nutritional product Start: 05-15-2020 take 1 dose by mouth once aissatou y FibRestore Active 1 DOSE PO DAILY May 15, 2020 12:00am reliv nutritional product Innergize (3 sources) Start: 05-15-2020 take 1 dose by mouth once daily Innergize Active 1 DOSE PO DAILY May 15, 2020 12:45pm reliv nutritional products Start: 05-15-2020 Innergize Acti ve 1 NMA PO DAILY 0 May 15, 2020 12:00am supplement reliv nutritional products Start: 05-15-2020 take 1 dose by mouth once aissatou y Innergize Active 1 DOSE PO DAILY May 15, 2020 12:00am reliv nutritional products Now (3 sources) Start: 05-15-2020 take 1 dose by mouth once daily Now Active 1 DOSE PO DAILY May 15, 2020 12:45pm Start: 05-15-2020 Now Active 1 N MA PO DAILY 0 May 15, 2020 12:00am supplement Start: 05-15-2020 take 1 dose by mouth once aissatou y Now Active 1 DOSE PO DAILY May 15, 2020 12:00am Talmage 8-Rew-Yfx-Fish Oil (Fish Oil) 1,200 (144-216) mg capsule (1 source) Start: 02-02-2024 Talmage 3-Dha-Ep a-Fish Oil (Fish Oil) 1,200 (144-216) mg capsule Active 1 NMA PO DAILY February 02, 2024 12:00am Reliv Nutritional Products (3 sources) Start: 05-15-2020 take 1 dose by mouth once daily Reliv Nutritional Products Active 1 DOSE PO DAILY May 15, 2020 12:44pm Start: 05-15-2020 Reliv Nutritio nal Products Active 1 NMA PO DAILY 0 May 15, 2020 12:00am supplement Start: 05-15-2020 take 1 dose by mouth once aissatou y Reliv Nutritional Products Active 1 DOSE PO DAILY May 15, 2020 12:00am Soy Essentials (3 sources) Start: 05-15-2020 take 1 dose by mouth once daily Soy Essentials Active 1 DOSE PO DAILY May 15, 2020 12:47pm Start: 05-15-2020 Soy Essentials Active 1 NMA PO DAILY 0 May 15, 2020 12:00am supplement Start: 05-15-2020 take 1 dose by mouth once aissatou y Soy Essentials Active 1 DOSE PO DAILY May 15, 2020 12:00am Completed/Discontinued Medications Medication Drug Class(es) Dates Sig (Normalized) Sig (Original) betamethasone 3 mg/ml / betamethasone acetate 3 mg/ml injectable suspension (1 source) Corticosteroid Start: 01-27-2022 End: 01-27-2022 betamethasone acetate-betamethason e sodium phosphate 12 mg injection (CELESTONE) Start: 01-27-2022 End: 01-27-2022 betamethasone acetate-betame thasone sodium phosphate 12 mg injection (CELESTONE) cephalexin 250 mg oral capsule (1 source) Cephalosporin Antibacterial Start: 02-02-2024 End: 02-07-2024 take 1 capsule by mouth three times daily Cephalexin 250 mg capsule Discontinued 250 mg PO THREE TIMES A DAY 15 5 0 February 02, 2024 12:00am February 06, 2024 12:00am February 07, 2024 12:05am 10 ml lidocaine hydrochloride 10 mg/ml injection (1 source) Antiarrhythmic, Amide Local Anesthetic Start: 01-27-2022 End: 01-27-2022 lidocaine (PF) 10 mg/mL (1 %) 4 mL injection (XYLOCAINE) Start: 01-27-2022 End: 01-27-2022 lidocaine (PF) 10 mg/mL (1 % ) 4 mL injection (XYLOCAINE) zinc gluconate 30 mg oral tablet (3 sources) Start: 06-13-2020 End: 02-02-2024 Zinc Gluconate 30 MG tablet Discontinued 11 mg PO DAILY June 13, 2020 1:00am February 02, 2024 11:57am supplement Start: 06-13-2020 take 11 mg by mouth once daily Zinc Gluconate Active 11 MG PO DAILY June 13, 2020 2:34pm Problems Active Problems Problem Classification Problem Date Documented Da te Episodic/Chronic Cardiac dysrhythmias (4 sources) Palpitations; Translations: [Palpitations] Episodic Disorders of lipid metabolism (3 sources) Hyperlipidemia; Translations: [Hyperlipidemia, unspecified] Chronic Nausea and vomiting (1 source) Nausea; Translations: [Nausea] 12-21-2023 Episodic Osteoarthritis (6 sources) Osteoarthritis of knee; Translations: [Unilateral primary osteoarthritis, unspecified knee] Chronic Osteoporosis (1 source) Age-related osteoporosis without current pathological fracture; Translations: [Age-related osteoporosis without current pathological fracture] Onset: 03-11-2025 Chronic Other gastrointestinal disorders (1 source) Abdominal bloating; Translations: [Abdominal distension (gaseous)] 12-23-2023 Episodic Other infections; including parasitic (1 source) History of Helicobacter pylori infection; Translations: [Personal history of other infectious and parasitic diseases] 02-02-2024 Episodic Comment on above: IN PAST Other injuries and conditions due to external causes (1 source) Unspecified injury of unspecified ankle, initial encounter; Translations: [Knee, leg, ankle, and foot injury] Episodic Other injuries and conditions due to external causes (1 source) Unspecified injury of unspecified foot, initial encounter; Translations: [Knee, leg, ankle, and foot injury] Episodic Other non-traumatic joint disorders (3 sources) Pain in left knee; Translations: [Left knee pain] 05-15-2020 Episodic Other screening for suspected conditions (not mental disorders or infectious disease) (1 source) Encounter for screening mammogram for malignant neoplasm of breast; Translations: [Encounter for screening mammogram for malignant neoplasm of breast] Onset: 12-15-2024 Episodic Past or Other Problems Problem Classification Problem Date Documented Da te Episodic/Chronic Unclassified (2 sources) history of bone fracture 02-10-2022 Unclassified (2 sources) history of breast lump/cyst 02-10-2022 Unclassified (2 sources) history of child 02-10-2022 Results Test Name Value Interpretation Reference Range Facil ity Bone density reportOrdered B y: Bang Mayfield on 03-05-2025 Study report Skeletal system DXA [facility] Imaging Services [address] [place], [place] [id number] Dexa Bone Density Study MR#: [id number] Acct: [id number] Name: GEENA HOOKER Rep #: [id number] : 1955 F 69 From: Leland Mayfield MD PCP: Dr. Valeria Gerardo MD Status: [facility] Study:Dexa Bone Density Study Date of Exam: 03/05/25 Exam# [id number] Ordering Dr: Valeria Gerardo MD PROCEDURE: DEXA BONE DENSITY STUDY 03/05/2025 REASON FOR EXAM: OSTEOPOROSIS F, age 69 y/o . Postmenopausal. TECHNIQUE: DEXA BONE DENSITY STUDY COMPARISON: None FINDINGS: BMD and T-SCORES Lumbar spine: 0.956 g/cm2, T-score -0.8 Levels: L1 through L4 Left femoral neck: 0.570 g/cm2, T-score -2.5 Femoral neck comparison data not recommended for monitoring change. Left total hip: 0.719 g/cm2, T-score -1.8 Right femoral neck: 0.547 g/cm2, T-score -2.7 Femoral neck comparison data not recommended for monitoring change. Right total hip: 0.635 g/cm2, T-score -2.5 The World Health Organization has defined the following categories based on bonedensity: Normal bone density: T-score equal to or greater than -1.0 Osteopenia: T-score between -1.0 and -2.5 Osteoporosis: T-score equal to or less than -2.5 The patient does meet the pharmacological treatment recommendations for prevention of osteoporosis. BD/Dexa Bone Density Study IMPRESSION: OSTEOPOROSIS. Recommend follow-up as clinically warranted. Reading Location: [place] [address] CC: Dr. Valeria Gerardo MD ~ Waste Specialist: Signed [facility] Dexa Bone Density Studyon Dexa Bone Density Study [facility] Imaging Services [address] [place] [id number] Dexa Bone Density Study MR#: [id number] Acct: [id number] Name: GEENA HOOKER Rep #: [id number] : 1955 F 69 From: Bang harvey MD PCP: Dr. Valeria Gerardo MD Status: REG CLI Study: Dexa Bone Density Study Date of Exam: 03/05/25 Exam# [id number] Ordering Dr: Valeria Gerardo MD PROCEDURE: DEXA BONE DENSITY STUDY 03/05/2025 REASON FOR EXAM: OSTEOPOROSIS F, age 69 y/o . Postmenopausal. TECHNIQUE: DEXA BONE DENSITY STUDY COMPARISON: None FINDINGS: BMD and T-SCORES Lumbar spine: 0.956 g/cm2, T-score -0.8 Levels: L1 through L4 Left femoral neck: 0.570 g/cm2, T-score -2.5 Femoral neck comparison data not recommended for monitoring change. Left total hip: 0.719 g/cm2, T-score -1.8 Right femoral neck: 0.547 g/cm2, T-score -2.7 Femoral neck comparison data not recommended for monitoring change. Right total hip: 0.635 g/cm2, T-score -2.5 The World Health Organization has defined the following categories based on bone density: Normal bone density: T-score equal to or greater than -1.0 Osteopenia: T-score between -1.0 and -2.5 Osteoporosis: T-score equal to or less than -2.5 The patient does meet the pharmacological treatment recommendations for prevention of osteoporosis. BD/Dexa Bone Density Study IMPRESSION: OSTEOPOROSIS. Recommend follow-up as clinically warranted. Reading Location: [facility] CC: Dr. Valeria Gerardo MD Waste Specialist: Signed [facility] SCRN MAMM (CAD)W/JASS BILATo n 12-12-2024 SCRN MAMM (CAD)W/JASS BILAT [facility] Imaging Services [address] [place] [id number] SCRN MAMM (CAD)W/JASS BILAT MR#: [id number] Acct: [id number] Name: GEENA HOOKER Rep #: [id number] : 1955 F 69 From: Angy Richard i, MD PCP: Dr. Valeria Gerardo MD [facility] Study: SCRN MAMM (CAD)W/JASS BILAT Date of Exam: 11/23 08/18 Exam# [id number] Ordering Dr: Valeria Gerardo MD EXAM: SCRN MAMM (CAD)W/JASS BILAT DATE: 12/12/2024 CLINICAL HISTORY: F, Age 69 y/o , BREAST CANCER SCREENING BREAST CANCER RISK ASSESSMENT: Not reported TECHNIQUE: Bilateral screening digital breast tomosynthesis with 2D and 3D images. Computer aided detection. COMPARISON: None available FINDINGS: TISSUE DENSITY: The breast tissue is composed of scattered area of fibroglandular density. Bilateral Breast Mammographic Findings: No suspicious masses, calcifications or other abnormalities are identified. BI/SCRN MAMM (CAD)W/JASS BILAT IMPRESSION: OVERALL FINAL ASSESSMENT: BIRADS 1 NEGATIVE RECOMMENDATION: Routine annual follow-up in 1 Year A letter with findings and recommendations will be mailed to the patient. Reading Location: [id number] CC: Dr. Valeria Gerardo MD Waste Specialist: Signed Normal [facility] Absolute lymphocyte counton 03-09-2022 Lymphocytes Auto (Unsp spec) [#/Vol] 1.21 10*3/uL 0.83-4.51 [facility] Work Phone: Basophil percentageon 2021 Basophils/100 WBC (Bld) 0.7 % 0-1 [facility] Work Phone: Bilirubin [Mass/Vol] 0.50 mg/dL 0.20-1.00 [facility] Work Phone: Comment on above: For patients on eltr ombopag therapy, use of Dimension Carlin TBIL is not recommended. Chloride [Moles/Vol] 102 mmol/L 98-107 [facility] Work Phone: Cholesterol [Mass/Vol] 247 mg/dL <200 [facility] Work Phone: Comment on above: <200 mg/dL Desirable 200-240 mg/dL Borderline >240 mg/dL High Risk Eosinophils/100 WBC (Bld) 0.5 % 0-5 [facility] Work Phone: Glucose [Mass/Vol] 101 mg/dL 74-106 [facility] Work Phone: Comment on above: Fasting Glucose resu lt from 100 to 125 mg/dL suggests IMPAIRED HOMEOSTASIS per A.D.A. criteria. Neutrophils (Bld) [#/Vol] 4.2 10*3/uL 2.0-7.7 [facility] Work Phone: Neutrophils/100 WBC (Bld) 69.7 % 47-70 [facility] Work Phone: Potassium [Moles/Vol] 4.1 mmol/L 3.5-5.1 [facility] Work Phone: Protein [Mass/Vol] 7.2 g/dL 6.4-8.2 [facility] Work Phone: Sodium [Moles/Vol] 137 mmol/L 136-145 [facility] Work Phone: Triglyceride [Mass/Vol] 61 mg/dL <199 [facility] Work Phone: Comment on above: The drugs N-Acetylcy steine and Metamizole may falsely depress this assay.Serum Triglycerides Reference Interval Normal <150 mg/dL Borderline high 150 - 199 mg/dL High 200 - 499 mg/dL Very High > or = 500 mg/dL WBC (Bld) [#/Vol] 6.1 10*3/uL 4.4-11.0 [facility] Work Phone: Blood erythrocytes count (nu mber/volume)on 03-09-2022 RBC (Bld) [#/Vol] 4.56 10*6/uL 4.2-5.4 [facility] Work Phone: Blood hemoglobin measurement (mass/volume)on 03-09-2022 Hemoglobin (Bld) [Mass/Vol] 13.8 g/dL 12.0-15.0 [facility] Work Phone: Blood lymphocytes/100 leukoc yteson 03-09-2022 Lymphocytes/100 WBC (Bld) 19.9 % 19-41 [facility] Work Phone: Blood monocytes/100 leukocyt eson 03-09-2022 Monocytes/100 WBC (Bld) 8.9 % 0-10 [facility] Work Phone: Blood platelet mean volumeon 03-09-2022 Platelet mean volume (Bld) [Entitic vol] 9.3 fL 6.2-12.0 [facility] Work Phone: Determination of erythrocyte mean corpuscular volume (MCV)on 03-09-2022 MCV (RBC) [Entitic vol] 90.1 fL 81-99 [facility] Work Phone: Hematocrit Auto (Bld) [Volum e fraction]on 03-09-2022 Hematocrit (Bld) [Volume fraction] 41.1 % 37-47 [facility] Work Phone: Laboratory - Chemistry and C hemistry - challengeon 03-09-2022 ALP [Catalytic activity/Vol] 56 U/L 45-117 [facility] Work Phone: ALT [Catalytic activity/Vol] 24 U/L 13-56 [facility] Work Phone: CO2 [Moles/Vol] 29.0 mmol/L 21.0-32.0 [facility] Work Phone: Globulin (S) [Mass/Vol] 3.2 g/dL 2.2-4.2 [facility] Work Phone: Urea nitrogen/Creatinine [Mass ratio] 15.0 mg/mg 10-20 [facility] Work Phone: Laboratory - Hematology and Cell countson 03-09-2022 Erythrocyte distribution width (RBC) [Entitic vol] 39.6 fL 35.1-43.9 [facility] Work Phone: Erythrocyte distribution width (RBC) [Ratio] 12.0 % 11.6-14.6 [facility] Work Phone: Immature granulocytes/100 WBC (Bld) 0.300 % 0.0-0.9 [facility] Work Phone: Comment on above: IG% - Immature Granu locytes (promyelocytes, myelocytes and metamyelocytes) > 1% indicates that a LEFT SHIFT is Present. MCH (RBC) [Entitic mass] 30.3 pg 27.0-32.0 [facility] Work Phone: Nucleated RBC/100 WBC (Bld) [Ratio] 0 % 0-5 [facility] Work Phone: MCHC Auto (RBC) [Mass/Vol]on 03-09-2022 MCHC (RBC) [Mass/Vol] 33.6 g/dL 32-36 [facility] Work Phone: No Panel Informationon 03-09 Estimated GFR (MDRD) Amer 113 mL/min >60 [facility] Work Phone: Comment on above: GFR Calc Estimated GFR (MDRD) Non-Af Amer 94 mL/min >60 [facility] Work Phone: Comment on above: Non- GFR Calc Thyroid Stimulating Hormone (TSH) 1.64 uIU/mL 0.358-3.74 [facility] Work Phone: Vitamin D 25-Hydroxy 40.1 ng/mL [facility] Work Phone: Comment on above: Vitamin D 25(OH) Sta tus Range Deficiency <20 ng/mL (50nmol/L) Insufficiency 20 - 30 ng/mL (50 - 75 nmol/L) Sufficiency 30 - 100 ng/mL (75 - 250 nmol/L) Toxicity >100 ng/mL (>250 nmol/L) Platelets bldon 03-09-2022 Platelets (Bld) [#/Vol] 269 10*3/uL 150-450 [facility] Work Phone: Serum or plasma albumin yessy urement (mass/volume)on 03-09-2022 Albumin [Mass/Vol] 4.0 g/dL 3.2-5.0 [facility] Work Phone: Serum or plasma albumin/glob ulin mass ratioon 03-09-2022 Albumin/Globulin [Mass ratio] 1.2 {ratio} 0.9-2.4 [facility] Work Phone: Serum or plasma calcium yessy urement (mass/volume)on 03-09-2022 Calcium [Mass/Vol] 9.0 mg/dL 8.5-10.1 [facility] Work Phone: Serum or plasma cholesterol in HDL measurement (mass/volume)on 03-09-2022 Cholesterol in HDL [Mass/Vol] 74 mg/dL >40 [facility] Work Phone: Comment on above: The drugs N-Acetylcy steine and Metamizole may falsely depress this assay. Reference Range HDL <40 mg/dL Low HDL Cholesterol HDL >or= 60 mg/dL High HDL Cholesterol Serum or plasma cholesterol in VLDL measurement (mass/volume)on 03-09-2022 Cholesterol in VLDL [Mass/Vol] 12 mg/dL 5-40 [facility] Work Phone: Serum or plasma creatinine m easurement (mass/volume)on 03-09-2022 Creatinine [Mass/Vol] 0.67 mg/dL 0.55-1.02 [facility] Work Phone: Comment on above: The validity of the calculated GFR & GFRAA in patients over 70 years has not been determined. Clinical correlation is essential. Serum or plasma low density lipoprotein (LDL) cholesterol measurement (mass/volume)on 03-09-2022 Cholesterol in LDL [Mass/Vol] 161 mg/dL 0-130 [facility] Work Phone: Serum or plasma urea nitroge n measurement (mass/volume)on 03-09-2022 Urea nitrogen [Mass/Vol] 10 mg/dL 7-18 [facility] Work Phone: Thin prep Papanicolaou smear with manual screeningon 03-09-2022 Thin prep Papanicolaou smear with manual screening 19 U/L 15-37 [facility] Work Phone: Thin prep Papanicolaou smear with manual screening 6 5-15 [facility] Work Phone: CNOVon 01-27-2022 CNOV Office Visit (ORAV[facility] ) GEENA HOOKER ([id number]) 1955 F Date Time Provider Department 01/27/22 9:00 AM ARIN MTZ During your visit today, we recorded the following information about you: Weight 79.4 kg Arin Mtz MD 01/27/2022 9:54 AM Signed CONSULT ORTHOPAEDIC: KNEE PRIMARY CARE PHYSICIAN: Sonia Lentz MD REFERRING PROVIDER: SELF ASSESSMENT AND PLAN Impression: Left knee pain - ITB After discussion with Geena Hooker, continued non-operative management of injection(s) was chosen. The patient currently has had six months of unsuccessful non-operative treatment as outlined in the HPI below and progressive symptoms. PT HAD RELIEF WITH INJECTION. FAILED one year of PT Knee not unstable Not loose No infection Additional Injections for Knee Tendinopathy Informed Consent Consent Obtained: Verbal Muir Protocol A moment to CARE was completed. SIGN IN Sign in communication not applicable due to emergent procedure. Personnel directly involved with the procedure wore the appropriate PPE. Special Equipment: N/A Patient/Surrogate Stated/Verified: Patient name, Date of , Relevant allergies and Intended procedure TIME OUT Intended patient and procedure match the source document(s). Consent documented and matches the intended procedure. Relevant labs, photos, and/or imaging studies have been reviewed. Correct side/site marked and visible. Medications required for procedure verified. Fire risk assessed and interventions discussed. No implant(s) inserted. 01/27/2022 9:48 AM The procedure site was prepped in the usual sterile fashion. Site: L Distal IT band Medications: 12 mg betamethasone acetate-betamethasone sodium phosphate 6 mg/mL Anesthetics: 4 mL lidocaine (PF) 10 mg/mL (1 %) Outcome: tolerated well, no immediate complications Post-injection instructions were reviewed with the patient and the patient voiced understanding of these instructions. SIGN OUT No specimen collected. All instruments, equipment, possible retained foreign bodies accounted for. Post-procedure follow-up management communicated and Plan of Care Visit completed when applicable Progressive Symptoms Include: Pain impacting sleep or causing fatigue Pain impacting work Pain worsened by weight bearing Pain effecting living situation Pain limiting ability to stay fit and healthy Unable to ambulate 2 blocks without significant pain and dysfunction . The patient has been ordered: No orders placed today. CONSULTS: Patient does not require consults for optimization at this time. There is no problem list on file for this patient. SUBJECTIVE CHIEF COMPLAINT: Knee Pain HPI: Geena Hooker is a 66 year old patient here for evaluation and management of left knee pain. 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 The problem began limiting activities 1-3 years ago. Currently the pain in the joint is rated at 4 out of 10 with minimal activity. The pain is intermittent and is located along the outside aspect. The pain is described as aching. Relieving factors include rest, over the counter medication and repositioning. There is no specific incident that brought about this pain. Geena Hooker also complains of stiffness and popping. FUNCTIONAL STATUS: Walk indoors, such as around the house (1.75 METs) Do light work around the house, such as dusting or washing dishes (2.70 METs) Take care of self, that is eating, dressing, bathing, using the toilet (2.75 METs) Walk a block or two on level ground (2.75 METs) Do moderate work around the house such as vacuuming, sweeping floors, or carrying in groceries (3.50 METs) Total Joint Arthroplasty: Risk Calculator Geena Hooker has a chance of NOT returning home at discharge for a Primary total Knee replacement. Geena's estimated Length of Stay is . Geena's 30 day chance of readmission is . These calculations are based on the following factors: - 66 years of age - sex is not male - [facility]xCare score of 60 - 0 hospitalizations in the last 12 months - no history of heart disease - no history of diabetes - no history of COPD - no history of anemia - preoperative ambulation: independent community distances - 1 step(s) to enter home - bed location is on the first floor - bath location is on the first floor - caregiver is consistent - home is not more than 150 miles away - PROMIS-10 Mental Health T score not available - Marital status: PREVIOUS TREATMENTS: Physical Therapy: PT Three Months or Greater 1-2 times per week Pr (more content not included)... Normal [facility] No Panel Informationon 01-27 [facility] XR KNEE 3V AP/LAT/MERCHANT L Ton 01-27-2022 XR KNEE 3V AP/LAT/MERCHANT LT * * *Final Report* * * DATE OF EXAM: Jan 27 2022 8:55AM AFR 5208 - XR KNEE 3V AP/LAT/MERCHANT LT / PROCEDURE REASON: Primary osteoarthritis of left knee * * * * Physician Interpretation * * * * EXAMINATION / TECHNIQUE: XR KNEE 3V AP/LAT/MERCHANT LT HISTORY: LT KNEE PAIN Primary osteoarthritis of left knee COMPARISON: None FINDINGS: Status post left total knee arthroplasty with orthopedic hardware in standard position and alignment. There is no periprosthetic lucency or fracture. IMPRESSION: Status post left total knee arthroplasty without evidence of complication. Waste Specialist: PSCB Transcribe Date/Time: Jan 27 2022 9:50A Dictated by : EDGAR GARCIA MD This examination was interpreted and the report reviewed and electronically signed by: EDGAR GARCIA MD on Jan 27 2022 9:51AM EST [id number] [facility] Injections [facility] Vital Signs Date Time Vital Sign Value Performing Clinician Susanai linda 02-10-2022 14:32-0400 Body height 175.[address] Valeria Gerardo Work Phone: [facility] Work Phone: 02-10-2022 14:32-0400 Body mass index (BMI) [Ratio] 25.6 kg/m2 Dr. Valeria Gerardo Work Phone: [facility] Work Phone: 02-10-2022 14:32-0400 Body temperature 97.5 [degF] Dr. Valeria Gerardo Work Phone: [facility] Work Phone: 02-10-2022 14:32-0400 Body weight 78.[address] Valeria Gerardo Work Phone: [facility] Work Phone: 02-10-2022 14:32-0400 Diastolic blood pressure 68 mm[Hg] Dr. Valeria Gerardo Work Phone: [facility] Work Phone: 02-10-2022 14:32-0400 Heart rate 78 /min Dr. Valeria Gerardo Work Phone: [facility] Work Phone: 02-10-2022 14:32-0400 Respiratory rate 16 /min Dr. Valeria Gerardo Work Phone: [facility] Work Phone: 02-10-2022 14:32-0400 SaO2% (BldA) [Mass fraction] 99 % Dr. Valeria Gerardo Work Phone: [facility] Work Phone: 02-10-2022 14:32-0400 Systolic blood pressure 124 mm[Hg] Dr. Valeria Gerardo Work Phone: [facility] Work Phone: 01-27-2022 09:05-0400 Body weight 79.38 kg Arin Mtz MD Work Phone: [facility] 01-01-2022 09:29-0400 Body temperature 97.5 [degF] Dr. Valeria Gerardo Work Phone: [facility] Work Phone: 01-01-2022 09:29-0400 Body weight 78.[address] Valeria Gerardo Work Phone: [facility] Work Phone: 01-01-2022 09:29-0400 Diastolic blood pressure 80 mm[Hg] Dr. Valeria Gerardo Work Phone: [facility] Work Phone: 01-01-2022 09:29-0400 Heart rate 74 /min Dr. Valeria Gerardo Work Phone: [facility] Work Phone: 01-01-2022 09:29-0400 Respiratory rate 16 /min Dr. Valeria Gerardo Work Phone: [facility] Work Phone: 01-01-2022 09:29-0400 SaO2% (BldA) [Mass fraction] 96 % Dr. Valeria Gerardo Work Phone: [facility] Work Phone: 01-01-2022 09:29-0400 Systolic blood pressure 142 mm[Hg] Dr. Valeria Gerardo Work Phone: [facility] Work Phone: 01-01-2022 09:29-0400 Body temperature 97.5 [degF] Dr. Valeria Gerardo Work Phone: [facility] Work Phone: 01-01-2022 09:29-0400 Body weight 78.[address] Valeria Gerardo Work Phone: [facility] Work Phone: 01-01-2022 09:29-0400 Diastolic blood pressure 80 mm[Hg] Dr. Valeria Gerardo Work Phone: [facility] Work Phone: 01-01-2022 09:29-0400 Heart rate 74 /min Dr. Valeria Gerardo Work Phone: [facility] Work Phone: 01-01-2022 09:29-0400 Respiratory rate 16 /min Dr. Valeria Gerardo Work Phone: [facility] Work Phone: 01-01-2022 09:29-0400 SaO2% (BldA) [Mass fraction] 96 % Dr. Valeria Gerardo Work Phone: [facility] Work Phone: 01-01-2022 09:29-0400 Systolic blood pressure 142 mm[Hg] Dr. Valeria Gerardo Work Phone: [facility] Work Phone: Encounters Encounter Date Encounter Type Care Provider Facility Start: 03-05-2025 End: 03-05-[address] Valeria Gerardo MD Work Phone: -Outpatient Bone Densitometry Start: 03-05-2025 End: 03-05-[address] Valeria Gerardo MD -Outpatient Bone Densitometry Work Phone: Start: 03-05-2025 End: 03-05-2025 ambulatory Valeria Gerardo Facility:[facility] Start: 12-12-2024 End: 12-12-[address] Valeria Gerardo MD -Outpatient Breast Imaging Work Phone: Start: 12-12-2024 End: 12-12-2024 ambulatory Valeria Gerardo Facility:[facility] Start: 03-09-2022 End: 03-09-[address] Valeria Gerardo Work Phone: [facility]-Outpatient Breast Imaging Start: 02-10-2022 End: 02-10-[address] Valeria Gerardo Work Phone: [facility] Start: 01-27-2022 End: 01-27-2022 Patient encounter procedure Arin Mtz MD Work Phone: Orthopaedics Comment on above: Primary osteoarthrit is of left knee (Primary Dx) Start: 01-27-2022 End: 01-27-2022 Subsequent hospital visit by physician [facility] Rej Work Phone: Radiology Comment on above: Primary osteoarthrit is of left knee [M17.12] Start: 01-01-2022 End: 01-01-[address] Valeria Gerardo Work Phone: [facility] Procedures Date Procedure Procedure Detail Performing Clinician Start: 03-05-2025 Dual energy X-ray absorptiometry Dr. Valeria Gerardo MD Work Phone: Start: 12-12-2024 Screening mammography Mary Gerardo MD Work Phone: Start: 01-27-2022 Injection 1 tendon sheath/ligament aponeurosis Arin Mtz MD Work Phone: Start: 01-27-2022 Radiologic examinati on knee 3 views Arin Mtz MD Work Phone: Start: 01-01-[address] Kenneth Gerardo Work Phone: Start: 01-01-2022 X-ray of both feet Dr. Valeria Gerardo Work Phone: Plan of Treatment Date Care Activity Detail Author Start: 03-25-2023 Influenza [facility] Start: 07-25-2022 Advance Directive Discussion Advance Directive Discussion [facility] Start: 07-25-2022 Depression Assessment Depression Assessment [facility] Start: 03-25-2022 Influenza vaccination INFLUENZA (#1) [facility] Start: 03-09-2022 MG Breast - bilateral Screening [facility] Work Phone: Start: 03-09-2022 Screening mammography SCRN MAMM (CAD)W/JASS BILAT [facility] Work Phone: Start: 07-25-2021 ADVANCE DIRECTIVE DISCUSSION ADVANCE DIRECTIVE DISCUSSION [facility] Start: 12-09-2019 BONE DENSITY BONE DENSITY [facility] Start: 12-09-2019 Bone Density Screening Bone Density Screening [facility] Start: 12-09-2019 Pneumococcal Vaccine: 65+ (1 - PCV) Pneumococcal Vaccine: 65+ (1 - PCV) [facility] Start: 12-09-2019 PNEUMOCOCCAL: 65+ (1 - PCV) PNEUMOCOCCAL: 65+ (1 - PCV) [facility] Start: 2014 RSV Vaccine (1 - 1-dose 60+ series) RSV Vaccine (1 - 1-dose 60+ series) [facility] Start: 2004 SHINGRIX VACCINE (1 of 2) SHINGRIX VACCINE (1 of 2) [facility] Start: 12-09-1999 COLOGUARD (FIT-DNA) COLOGUARD (FIT-DNA) [facility] Start: 12-09-1999 Colonoscopy COLONOSCOPY [facility] Start: 12-09-1999 COLORECTAL CANCER SCREENING COLORECTAL CANCER SCREENING [facility] Start: 12-09-[address] COLONOGRAPHY [facility] Start: 12-09-1999 DIABETES SCREEN DIABETES SCREEN [facility] Start: 12-09-1999 Diabetes Screening Diabetes Screening [facility] Start: 12-09-1999 FECAL OCCULT BLOOD FECAL OCCULT BLOOD [facility] Start: 12-09-1999 Lipid 1996 panel - Serum or Plasma Lipid Screening [facility] Start: 12-09-1999 LIPID SCREEN LIPID SCREEN [facility] Start: 12-09-1999 SIGMOIDOSCOPY SIGMOIDOSCOPY [facility] Start: 1994 Mammography [facility] Start: 1973 Urine microalbumin profile [facility] Start: 1972 HEPATITIS C SCREENING HEPATITIS C SCREENING [facility] Start: 1966 Adult depression screening assessment DEPRESSION SCREENING [facility] Start: [birth year]10-1956 COVID-19 VACCINE (#1) COVID-19 VACCINE (#1) [facility] Payers Date Payer Category Payer Medicare [id number] 2024 Self-pay [id number] 2024 Unknown [id number] 2021 Private Health Insurance [facility] AARP SUPPLEMENT [id number] 2021-Present [phone] [id number] [place] [address] Indemnity [id number] 2021 Private Health Insurance [facility] AARP SUPPLEMENT [id number] 2021-Present [phone] [place] [address] Indemnity [id number] 2019 Medicare MEDICARE MEDICAR E A AND B [id number] 2019-Present [phone] [place] [address] Medicare [id number] 2019 Medicare MEDICARE MEDICAR E A AND B [id number] 2019-Present [phone] [place] [address] Medicare [id number] Private Health Insurance [facility] [id number] Unknown [id number] Unknown [id number] Social History Date Type Detail Facility Start: 01-01-2022 End: 02-10-2022 Tobacco smoking status NHIS Unknown if ever smoked [facility] Work Phone: Start: 1955 Sex Assigned At Female [facility] Start: 1955 Sex Assigned At Not on file [facility] Gender identity Not on file [facility] Start: 02-02-2024 Tobacco smoking stat us NHIS Never smoked tobacco (finding) [facility] Medical Equipment Procedure Code Equipment Code Equipment Origin al Text Equipment Identifier Dates ASYMMETRIC PATELLA FDA Start: 06-25-2020 CEMENT,BONE MAXIMILIAN H 1/2 BATCH FDA Start: 06-25-2020 CRUICIATE RETAIN ING FEMORAL FDA Start: 06-25-2020 TIBIAL BEARING INSERT FDA Start: 06-25-2020 TIBIAL COMPONENT FDA Start: 06-25-2020 ASYMMETRIC PATELLA FDA Start: 06-25-2020 CEMENT,BONE MAXIMILIAN H 1/2 BATCH FDA Start: 06-25-2020 CRUICIATE RETAIN ING FEMORAL FDA Start: 06-25-2020 TIBIAL BEARING INSERT FDA Start: 06-25-2020 TIBIAL COMPONENT FDA Start: 06-25-2020 ASYMMETRIC PATELLA FDA Start: 06-25-2020 CEMENT,BONE MAXIMILIAN H 1/2 BATCH FDA Start: 06-25-2020 CRUICIATE RETAIN ING FEMORAL FDA Start: 06-25-2020 TIBIAL BEARING INSERT FDA Start: 06-25-2020 TIBIAL COMPONENT FDA Start: 06-25-2020 Clinical Notes 01-27-2022 Arin Mtz MD - 01/27/2022 9:04 AM Gayle Bazzi RT(R) - 01/27/2022 8:45 AM EDT Note Date & Type Note Facility 01-27-2022 Note HNO ID: [id number] Author: Arin Mtz MD Service: ? Author Type: Physician Type: Progress Notes Filed: 01/27/2022 9:54 AM Note Text: CONSULT ORTHOPAEDIC: KNEE PRIMARY CARE PHYSICIAN: Sonia Lentz MD REFERRING PROVIDER: SELF ASSESSMENT AND PLAN Impression: Left knee pain - ITB After discussion with Geena Hooker, continued non-operative management of injection(s) was chosen. The patient currently has had six months of unsuccessful non-operative treatment as outlined in the HPI below and progressive symptoms. PT HAD RELIEF WITH INJECTION. FAILED one year of PT Knee not unstable Not loose No infection Additional Injections for Knee Tendinopathy Informed Consent Consent Obtained: Verbal Muir Protocol A moment to CARE was completed. SIGN IN Sign in communication not applicable due to emergent procedure. Personnel directly involved with the procedure wore the appropriate PPE. Special Equipment: N/A Patient/Surrogate Stated/Verified: Patient name, Date of , Relevant allergies and Intended procedure TIME OUT Intended patient and procedure match the source document(s). Consent documented and matches the intended procedure. Relevant labs, photos, and/or imaging studies have been reviewed. Correct side/site marked and visible. Medications required for procedure verified. Fire risk assessed and interventions discussed. No implant(s) inserted. 01/27/2022 9:48 AM The procedure site was prepped in the usual sterile fashion. Site: L Distal IT band Medications: 12 mg betamethasone acetate-betamethasone sodium phosphate 6 mg/mL Anesthetics: 4 mL lidocaine (PF) 10 mg/mL (1 %) Outcome: tolerated well, no immediate complications Post-injection instructions were reviewed with the patient and the patient voiced understanding of these instructions. SIGN OUT No specimen collected. All instruments, equipment, possible retained foreign bodies accounted for. Post-procedure follow-up management communicated and Plan of Care Visit completed when applicable Progressive Symptoms Include: Pain impacting sleep or causing fatigue Pain impacting work Pain worsened by weight bearing Pain effecting living situation Pain limiting ability to stay fit and healthy Unable to ambulate 2 blocks without significant pain and dysfunction . The patient has been ordered: No orders placed today. CONSULTS: Patient does not require consults for optimization at this time. There is no problem list on file for this patient. SUBJECTIVE CHIEF COMPLAINT: Knee Pain HPI: Geena Hooker is a 66 year old patient here for evaluation and management of left knee pain. 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 The problem began limiting activities 1-3 years ago. Currently the pain in the joint is rated at 4 out of 10 with minimal activity. The pain is intermittent and is located along the outside aspect. The pain is described as aching. Relieving factors include rest, over the counter medication and repositioning. There is no specific incident that brought about this pain. Geena Hooker also complains of stiffness and popping. FUNCTIONAL STATUS: Walk indoors, such as around the house (1.75 METs) Do light work around the house, such as dusting or washing dishes (2.70 METs) Take care of self, that is eating, dressing, bathing, using the toilet (2.75 METs) Walk a block or two on level ground (2.75 METs) Do moderate work around the house such as vacuuming, sweeping floors, or carrying in groceries (3.50 METs) Total Joint Arthroplasty: Risk Calculator Geena Hooker has a chance of NOT returning home at discharge for a Primary total Knee replacement. Geena's estimated Length of Stay is . Geena's 30 day chance of readmission is . These calculations are based on the following factors: - 66 years of age - sex is not male - NarxCare score of 60 - 0 hospitalizations in the last 12 months - no history of heart disease - no history of diabetes - no history of COPD - no history of anemia - preoperative ambulation: independent community distances - 1 step(s) to enter home - bed location is on the first floor - bath location is on the first floor - caregiver is consistent - home is not more than 150 miles away - PROMIS-10 Mental Health T score not available - Marital status: PREVIOUS TREATMENTS: Physical Therapy: PT Three Months or Greater 1-2 times per week Previous Surgery: Knee Replacement REVIEW OF SYSTEMS: GENERAL: Denies fever, chills malaise and weight loss.. PAIN ASSESSMENT: See HPI. HEENT: No recent change in vision or hearing.. CARDIOVASC (more content not included)... [facility] 01-27-2022 Note HNO ID: [id number] Author: Gayle Menon, RT(R) Service: Radiology Author Type: Technologist Type: Progress Notes Filed: 01/27/2022 8:51 AM Note Text: Radiology Service Progress Note PATIENT NAME: Geena Hooker DATE OF SERVICE: January 27, 2022 TIME: 8:51 AM PATIENT IDENTITY VERIFICATION COMPLETED USING TWO (2) IDENTIFIERS: Name and Date of confirmed by patient verbally. FALL SCREENING: Has the patient had 2 falls in the last year or 1 fall with injury or currently using an Ambulatory Assistive Device (Walker, Cane, Wheelchair, Crutches, etc.)? No PATIENT GENDER DATA: Female. status: : No status: NO. PATIENT RELEVANT IMPLANT DATA REVIEWED: Not Applicable RADIOLOGY DEPARTMENT: General X-ray: Exam(s) Completed: Lower Extremity X-Ray(s): Knee, AP / Lat / Merchant Left and Wt. Bearing PERIPHERAL IV DATA: Not applicable SIGNED BY:RT Katerine LUDWIG AND RT Norma(R) January 27, 2022 8:51 AM [facility] 01-27-2022 History of Present illness Narrative Associated Order(s): Additional Injections CONSULT ORTHOPAEDIC: KNEE PRIMARY CARE PHYSICIAN: Sonia Lentz MD REFERRING PROVIDER: SELF ASSESSMENT & PLAN Impression: Left knee pain - ITB After discussion with Geena Hooker, continued non-operative management of injection(s) was chosen. The patient currently has had six months of unsuccessful non-operative treatment as outlined in the HPI below and progressive symptoms. PT HAD RELIEF WITH INJECTION. FAILED one year of PT Knee not unstable Not loose No infection Additional Injections for Knee Tendinopathy Informed Consent Consent Obtained: Verbal Muir Protocol A moment to CARE was completed. SIGN IN Sign in communication not applicable due to emergent procedure. Personnel directly involved with the procedure wore the appropriate PPE. Special Equipment: N/A Patient/Surrogate Stated/Verified: Patient name, Date of , Relevant allergies and Intended procedure TIME OUT Intended patient and procedure match the source document(s). Consent documented and matches the intended procedure. Relevant labs, photos, and/or imaging studies have been reviewed. Correct side/site marked and visible. Medications required for procedure verified. Fire risk assessed and interventions discussed. No implant(s) inserted. 01/27/2022 9:48 AM The procedure site was prepped in the usual sterile fashion. Site: L Distal IT band Medications: 12 mg betamethasone acetate-betamethasone sodium phosphate 6 mg/mL Anesthetics: 4 mL lidocaine (PF) 10 mg/mL (1 %) Outcome: tolerated well, no immediate complications Post-injection instructions were reviewed with the patient and the patient voiced understanding of these instructions. SIGN OUT No specimen collected. All instruments, equipment, possible retained foreign bodies accounted for. Post-procedure follow-up management communicated and Plan of Care Visit completed when applicable Progressive Symptoms Include: Pain impacting sleep or causing fatigue Pain impacting work Pain worsened by weight bearing Pain effecting living situation Pain limiting ability to stay fit and healthy Unable to ambulate 2 blocks without significant pain and dysfunction . The patient has been ordered: No orders placed today. CONSULTS: Patient does not require consults for optimization at this time. There is no problem list on file for this patient. SUBJECTIVE CHIEF COMPLAINT: Knee Pain HPI: Geena Hooker is a 66 year old patient here for evaluation and management of left knee pain. 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 The problem began limiting activities 1-3 years ago. Currently the pain in the joint is rated at 4 out of 10 with minimal activity. The pain is intermittent and is located along the outside aspect. The pain is described as aching. Relieving factors include rest, over the counter medication and repositioning. There is no specific incident that brought about this pain. Geena Hooker also complains of stiffness and popping. FUNCTIONAL STATUS: Walk indoors, such as around the house (1.75 METs) Do light work around the house, such as dusting or washing dishes (2.70 METs) Take care of self, that is eating, dressing, bathing, using the toilet (2.75 METs) Walk a block or two on level ground (2.75 METs) Do moderate work around the house such as vacuuming, sweeping floors, or carrying in groceries (3.50 METs) Total Joint Arthroplasty: Risk Calculator Geena Hooker has a chance of NOT returning home at discharge for a Primary total Knee replacement. Geena's estimated Length of Stay is . Geena's 30 day chance of readmission is . These calculations are based on the following factors: - 66 years of age - sex is not male - NarxCare score of 60 - 0 hospitalizations in the last 12 months - no history of heart disease - no history of diabetes - no history of COPD - no history of anemia - preoperative ambulation: independent community distances - 1 step(s) to enter home - bed location is on the first floor - bath location is on the first floor - caregiver is consistent - home is not more than 150 miles away - PROMIS-10 Mental Health T score not available - Marital status: PREVIOUS TREATMENTS: Physical Therapy: PT Three Months or Greater 1-2 times per week Previous Surgery: Knee Replacement REVIEW OF SYSTEMS: GENERAL: Denies fever, chills malaise and weight loss.. PAIN ASSESSMENT: See HPI. HEENT: No recent change in vision or hearing.. CARDIOVASCULAR: Denies active chest pain or feelings of heart palpitations RESPIRATORY: Denies SOB, sputum production, and hemoptysis.. GI: Denies active GI ulcers, active inflammatory disease, or nausea and vomiting : Denies change in frequency or urgency, and burning with urination. No CVA tenderness MUSCULOSKELETAL: See HPI. SKIN: Denies rash or itching.. PSYCHOLOGICAL: Denies uncontrolled depression or anxiety.. NEURO: Denies headaches, focal weakness, focal numbness, aphasia. ENDOCRINE: Denies polyuria, poydipsia, hair loss HEMATOLOGY/LYMPHOLOGY: Denies bleeding or clotting disorders and anemia ALLERGIC/IMMUNOLOGICAL: Denies risks for infection, or recent MRSA infections. Risk Factors for Total Joint Arthroplasty (TJA) Obesity Unknown Risk High: BMI > 40 Moderate: BMI 30-40 Normal: BMI < 30 Diabetes normal High: A1C > 8 Moderate: A1C 7-8 Normal: A1C < 7 Smoking normal High: Current smoker Normal: Non smoker Anemia normal High: Hgb < 11.5 (women) N/A: Hgb >= 11.5 (women) Nutritional Status normal High: Alb<3.4, or prealb<15, or serum transferrin<200, or total lymphocyte count<1500 Normal: normal labs COPD normal High: dx of COPD Normal: no dx of COPD MRSA normal High: dx of MRSA or positive lab test Normal: no MRSA CKD normal High: eGFR<60 Moderate: eGFR 60-89 Normal: eGFR>90 Hx of DVT / PE normal High: dx of DVT / PE Normal: no dx of DVT / PE Narcotics Use normal High:NarxCare >=300 Moderate: 100-299 Normal: 0-99 GENE normal High: dx of GENE N/A: no dx of GENE Coagulation normal High:PT Sec>13, or PT INR>1.3, or APTT>32.4, or Plt ct<150k Moderate: on anticoag but none of the above Normal: none Obesity: height and/or weight are out of date (There is no height and/or weight reading in the past 365 days, so the below BMI readings may be inaccurate) BMI Readings from Last 3 Encounters: No data found for BMI No past medical history on file. No past surgical history on file. No family history on file. Social History Tobacco Use Smoking status: Not on file Smokeless tobacco: Not on file Substance Use Topics Alcohol use: Not on file Drug use: Not on file ALLERGIES: Patient has no allergy information on record. MEDICATIONS: No prescriptions on file. PHYSICAL EXAM: There were no vitals taken for this visit. All other systems deferred. GENERAL: Appears healthy, well-nourished, no deformities. HABITUS: Normal GAIT: Normal, the patient did not have trouble getting onto the exam table. KNEE EXAM: Left: Alignment: Neutral Range of motion is 0 degrees in extension and 130 degrees of flexion. Extension La degrees Pain with ROM: No Effusion: None Tender to the palpation of None Pain with patellar compression: No Stability: Anterior/Posterior stable and Varus/Valgus stable Hip Exam: flexion to 100+ degrees, full extension, internal/external rotation adequate and no pain with log roll Neurovascular Status: Sensation Intact and Moves foot and ankle up & down Right: Alignment: Neutral Range of motion is 0 degrees in extension and 130 degrees of flexion. Extension La degrees Pain with ROM: No Effusion: None Tender to the palpation of None Pain with patellar compression: No Stability: Anterior/Posterior stable and Varus/Valgus stable Hip Exam: flexion to 100+ degrees, full extension, internal/external rotation adequate and no pain with log roll Neurovascular Status: Sensation Intact and Moves foot and ankle up & down DATA: Diagnostic tests reviewed for today's visit: Left knee X-Ray: Post-operative XRay: Implants are well aligned. Implants are well fixed. SIGNATURE: Arin Mtz MD PATIENT NAME: Geena Hooker DATE: January 27, 2022 TIME: 9:05 AM documented in this encounter [facility] 01-27-2022 History of Present illness Narrative Radiology Service Progress Note PATIENT NAME: Geena Hooker DATE OF SERVICE: January 27, 2022 TIME: 8:51 AM PATIENT IDENTITY VERIFICATION COMPLETED USING TWO (2) IDENTIFIERS: Name and Date of confirmed by patient verbally. FALL SCREENING: Has the patient had 2 falls in the last year or 1 fall with injury or currently using an Ambulatory Assistive Device (Walker, Cane, Wheelchair, Crutches, etc.)? No PATIENT GENDER DATA: Female. status: : No status: NO. PATIENT RELEVANT IMPLANT DATA REVIEWED: Not Applicable RADIOLOGY DEPARTMENT: General X-ray: Exam(s) Completed: Lower Extremity X-Ray(s): Knee, AP / Lat / Merchant Left and Wt. Bearing PERIPHERAL IV DATA: Not applicable SIGNED BY:RT Katerine LUDWIG AND RT Norma(R) January 27, 2022 8:51 AM documented in this encounter [facility] Evaluation note No assessment inform ation available [facility] Work Phone: Evaluation note Diagnosis Primary osteoarthritis of left knee- Primary Primary localized osteoarthrosis, lower leg [facility] Diagnosis Onset Date Resolution Status Ankle injury noneactive Toe injury noneactive Hyperlipidemia acute Osteoarthritis, knee chronic Palpitations chronic [facility] Work Phone: Evaluation note* Diagnosis Primary osteoarthritis of left knee Primary localized osteoarthrosis, lower leg [facility] Diagnostic Procedure Only (Routine) - Closed Specialty Diagnoses / Procedures Referred By Lucero t Referred To Contact XR IMAGING Diagnoses Primary osteoarthritis of left knee Procedures XR KNEE POST OP 3V AP/LAT/MERCHANT LEFT RADIOLOGIC EXAMINATION KNEE 3 VIEWS Arin Mtz MD [address] [place] [id number] Xr Imaging Referral ID Status Reason Start Date Expiration Date V isits Requested Visits Authorized [id number] Closed Auto-Generate d Referral 01/27/2022 02/26/2023 1 1 [facility] for referral (narrative)* Diagnostic Procedure Only (Routine) - Closed Specialty Diagnoses / Procedures Referred By Contasheligh t Referred To Contact XR IMAGING Diagnoses Primary osteoarthritis of left knee Procedures XR KNEE POST OP 3V AP/LAT/MERCHANT LEFT RADIOLOGIC EXAMINATION KNEE 3 VIEWS Arin Mtz MD [address] [place], [place] [id number] Xr Imaging [place] [id number] Referral ID Status Reason Start Date Expiration Date V isits Requested Visits Authorized [id number] Closed Auto-Generate d Referral 01/27/2022 02/26/2023 1 1 [facility] for referral (narrative)No reason for referral information [facility]WC[facility] Work Phone: Chief Complaint and Reason for Visit Chief Complaint possible broken toe with pain and swelling EORDERS Chief Complaint possible broken toe with pain and swelling EORDERS ROUTINE PHYSICAL SCREENING Reason for Visit Ankle injury Toe injury Hyperlipidemia Osteoarthritis, knee Palpitations Chief Complaint Admit Date Breast cancer screening December 12, 2024 3 :03pm osteoporosis March 05, 2025 10 :35am Family History No Family History Records Found Relationship Condition Age at Onset Recorded Date/T rusty Not Specified Malignant neoplasm of skin Unknown Osteoporosis Unknown Anxiety Unknown Arthritis Unknown Autoimmune disease Unknown Complication of anesthesia Unknown Hypertension Unknown mother Tuberculosis Unknown Advance Directives No Advanced Directives Records Found Advance Directive Response Recorded Date/ Time Living Will Yes June 13 2:41pm Power of Seasonal Customer Service Associate Yes June 13, 2020 2:41pm Medications Administered Section Inactive Administered Medications - up to 3 most recent administrations Medication Order MAR Action Action Date Dose Rate Site betamethasone acetate-betamethasone sodium phosphate 12 mg injection (CELESTONE) 12 mg, Injection - FOR ORTHO USE ONLY, ONE TIME INJECTION, 1 dose, Starting on Tue01/27/22 at 0948, Until Tue01/27/22 at 0948 Given 01/27/2022 9:48 AM EDT 12 mg lidocaine (PF) 10 mg/mL (1 %) 4 mL injection (XYLOCAINE) 4 mL, Injection - FOR ORTHO USE ONLY, ONE TIME INJECTION, 1 dose, Starting on Tue01/27/22 at 0948, Until Tue01/27/22 at 0948 Given 01/27/2022 9:48 AM EDT 4 mL Summary Purpose Additional Source Comments Goals (unrecognized section and content) Goals may be documented in a n alternate sectionGoals may be documented in an alternate sectionGoals may be documented in an alternate section Source Comments (unrecognize d section and content) In the event this informatio n is protected by the Federal Confidentiality of Alcohol and Drug Abuse Patient Records regulations: The Federal rules restrict any use of the information to criminally investigate or prosecute any alcohol or drug abuse patient.[facility] the event this information is protected by the Federal Confidentiality of Alcohol and Drug Abuse Patient Records regulations: The Federal rules restrict any use of the information to criminally investigate or prosecute any alcohol or drug abuse patient.[facility] Reason for Visit (unrecogniz ed section and content) Reason Comments new eval left knee pain Reason Comments Radio Gen RMP Specialty Diagnoses / Procedures Referred By Contac t Referred To Contact XR IMAGING Diagnoses Primary osteoarthritis of left knee Procedures XR KNEE POST OP 3V AP/LAT/MERCHANT LEFT RADIOLOGIC EXAMINATION KNEE 3 VIEWS Arin Mtz MD [address] [place] [address] [place] [id number] Referral ID Status Reason Start Date Expiration Date V isits Requested Visits Authorized [id number] Closed Auto-Generate d Referral 01/27/2022 02/26/2023 1 1 Care Teams (unrecognized sec tion and content) Validation Manager Relationship Specialty Start Date End Date Sonia Lentz MD [address] [id number] PCP - General 10/02/03 Validation Manager Relationship Specialty Start Date End Date Sonia Lentz MD [address] [id number] PCP - General 10/02/03 Team Status: Active Member Role/Relationship Status Dates Dr. Valeria Gerardo MD Primary Care Provider Active Team Status: Inactive Member Role/Relationship Status Dates Dr. Valeria Gerardo MD Primary Care Provider Active Start: December 12, 2024 End: December 12, 2024 Dr. Valeria Gearrdo MD Attending Provider Active Start: December 12, 2024 End: December 12, 2024 Dr. Valeria Gerardo MD Referring Provider Active Start: December 12, 2024 End: December 12, 2024 Team Status: Inactive Member Role/Relationship Status Dates Dr. Valeria Gerardo MD Primary Care Provider Active Start: March 05, 2025 End: March 05, 2025 Dr. Valeria Gerardo MD Attending Provider Active Start: March 05, 2025 End: March 05, 2025 Dr. Valeria Gerardo MD Referring Provider Active Start: March 05, 2025 End: March 05, 2025 INFORMATION SOURCE (unrecogn ized section and content) DATE CREATED AUTHOR 01/27/2022 [facility] DATE CREATED AUTHOR 'S ORGANIZ ATION 03/12/2025 [facility] FOR RECORDS PERTAINING TO PATIENTS WHO ARE OR HAVE BEEN ENROLLED IN A CHEMICAL DEPENDENCY/SUBSTANCEABUSE PROGRAM, SOME INFORMATION MAY BE OMITTED. This clinical summary was aggregated from multiple sources. Caution should be exercised in using it in the provision of clinical care. This summary normalizes information from multiple sources, and as a consequence, information in this document may materially change the coding, format and clinical context of patient data. In addition, data may be omitted in some cases. CLINICAL DECISIONS SHOULD BE BASED ON THE PRIMARY CLINICAL RECORDS. [facility] [employer] [facility]. provides no warranty or guarantee of the accuracy or completeness of information in this document.
== END | disposition home or self-care (01) ==
LOC: RAD 10:11
PROVIDERS: PCP Internal Medicine; Referring Provider Internal Medicine; Visit Provider Internal Medicine
DX: R05.9 Cough, unspecified (principal)
CPT/HCPCS: 71046